=== PATIENT | female | born 1935 | race Two or more races ===

== ENCOUNTER → 2017-05-25 | Outpatient (CLI) | payer MEDICARE, MEDICAID ==
[~2017-05-25] MED LIST: ADENOSINE 74 MG in GIVE UN-DILUTED 0 ML IV ONE; ADENOSINE 90 MG/30 ML INJ IV ONE; ASPI81CH43; CARV6.2551; CITA-77; DULO30CA; FURO40TA; GLY5T PO; LISI40TA; METF-370; NIFE90TA30; OME20GT; POTA20TA53 PO
[2017-05-25 16:14] LABS: Basophils # (auto) 0 uL; Basophils % (auto) 0.3 % (0.0-2.0); CONDITION Y; Eosinophils # (auto) 0.4 uL; Eosinophils % (auto) 4.5 % (0.0-7.0); Hematocrit 33.8 % (36.0-46.0); Hemoglobin 11.3 g/dL (12.2-16.2); Lymphocytes % (auto) 12.1 % (10.0-50.0); Mean Corpuscular Hemoglobin 31.1 pg (28.0-32.0); Mean Corpuscular Hgb Conc. 33.5 g/dL (32.0-36.0); Mean Corpuscular Volume 92.9 fL (80.0-100.0); Mean Platelet Volume 9.7 fL (7.4-10.4); Monocytes # (auto) 0.4 uL; Monocytes % (auto) 4.6 % (0.0-12.0); Neutrophils # (auto) 6.8 uL; Neutrophils % (auto) 78.5 % (37.0-80.0); Platelet Count (auto) 254 10^3/uL (140-450); Red Cell Distribution Width 13.5 % (11.6-16.0); White Blood Cell 8.6 10^3/uL (4.4-10.8)
[2017-05-25 16:34] LABS: Albumin 3.5 g/dL (3.4-5.0); BUN/Creatinine Ratio 19.6; Bilirubin, Total 0.4 mg/dL (0.2-1.0); Calcium 8.9 mg/dL (8.5-10.1); Potassium 4.2 mmol/L (3.5-5.1)
== END | disposition home or self-care (01) ==
LOC: Rad HDHVI 10:34
PROVIDERS: ATTEND Internal Medicine Cardiovascular Disease
DX: I10 Essential (primary) hypertension (principal); E11.9 Type 2 diabetes mellitus without complications; E78.00 Pure hypercholesterolemia, unspecified; E03.9 Hypothyroidism, unspecified; K74.1 Hepatic sclerosis; D64.9 Anemia, unspecified; E55.9 Vitamin D deficiency, unspecified
CPT/HCPCS: 36415; 78452; 80053; 80061; 82306; 82607; 83036; 84439; 84443; 85025; 93005; 96374; 96375; A9500; J0153

== ENCOUNTER → 2017-06-20 | Outpatient (CLI) | payer MEDICARE, MEDICAID ==
[~2017-06-20] MED LIST changes: -ADENOSINE 74 MG in GIVE UN-DILUTED 0 ML IV ONE; -ADENOSINE 90 MG/30 ML INJ IV ONE
== END | disposition home or self-care (01) ==
LOC: Rad HDHVI 11:09
PROVIDERS: ATTEND Internal Medicine Cardiovascular Disease
DX: J44.9 Chronic obstructive pulmonary disease, unspecified (principal); E78.5 Hyperlipidemia, unspecified
CPT/HCPCS: 93306

== ENCOUNTER 2017-08-12 15:08 | Inpatient (IN) | payer MEDICARE, MEDICAID ==
[~2017-08-12] VITALS: Ht 154.9 cm; Wt 89.7 kg
[2017-08-12 15:39] LABS: Basophils # (auto) 0 uL; Basophils % (auto) 0.2 % (0.0-2.0); Eosinophils # (auto) 0.2 uL; Eosinophils % (auto) 1.2 % (0.0-7.0); Hematocrit 36.5 % (36.0-46.0); Hemoglobin 11.8 g/dL (12.2-16.2); Lymphocytes % (auto) 6.9 % (10.0-50.0); Mean Corpuscular Hemoglobin 30.2 pg (28.0-32.0); Mean Corpuscular Hgb Conc. 32.4 g/dL (32.0-36.0); Mean Corpuscular Volume 93.2 fL (80.0-100.0); Mean Platelet Volume 8.3 fL (6.9-10.8); Monocytes # (auto) 0.6 uL; Monocytes % (auto) 4.3 % (0.0-12.0); Neutrophils # (auto) 13.2 uL; Neutrophils % (auto) 87.4 % (37.0-80.0); Nucleated Red Blood Cells % 0.1 %; Platelet Count (auto) 266 10^3/uL (140-450); Red Cell Distribution Width 12.9 % (11.8-14.3); White Blood Cell 15.1 10^3/uL (4.4-10.8)
[2017-08-12 15:53] LABS: Albumin 3.5 g/dL (3.4-5.0); Anion Gap 9 (5-15); Aspartate Aminotransferase 10 U/L (15-37); Blood Urea Nitrogen 15 mg/dL (7-18); Calcium 8.5 mg/dL (8.5-10.1); Carbon Dioxide 27 mmol/L (21-32); Chloride 108 mmol/L (98-107); GFR African American 58 mL/min; GFR Non-African American 48 mL/min; Glucose 275 mg/dL (74-106); Magnesium 2.1 mg/dL (1.6-2.6); Potassium 3.8 mmol/L (3.5-5.1); Sodium 144 mmol/L (136-145)
[2017-08-12 15:58] LABS: Alkaline Phosphatase 89 U/L (45-117); Bilirubin, Total 0.2 mg/dL (0.2-1.0); Total Protein 7.2 g/dL (6.4-8.2)
[2017-08-12] MEDS ORDERED: SODIUM CHLORIDE 0.9% 1,000 ML IV ONE (16:18)
[2017-08-12] MEDS ORDERED: methylPREDNISolone SOD SUCC 125 MG/2 ML VL IV ONE (16:30)
[2017-08-12] MEDS ORDERED: IPRATROPIUM BROM 0.5 MG/2.5ML INH SOL NEB ONE (16:30)
[2017-08-12] MEDS ORDERED: ALBUTEROL SULF 2.5 MG/0.5ML(0.5%) NEB SOLN NEB ONE (16:30)
[2017-08-12 17:47] LABS: Urine Bilirubin Negative (Negative); Urine Blood Negative /uL (Negative); Urine Color Yellow (Yellow); Urine Glucose Normal (Normal); Urine Hyaline Cast FEW /lpf (0 - 2); Urine Ketone Negative (Negative); Urine Nitrite POSITIVE (Negative); Urine RBC 1 /hpf (0 - 4); Urine Squamous Epithelial Cell FEW /hpf (<5); Urine Urobilinogen Normal (Negative)
[2017-08-12] MEDS ORDERED: cefTRIAXone 1GM/50ML D5W 50 ML IV ONE ×2 (18:15→19:00)
[2017-08-12] MEDS ORDERED: MORPHINE SULF INJ 2 MG/ML SYRINGE 1ML IV PRN ×3 (18:45)
[2017-08-12] MEDS ORDERED: LORazepam 0.5 MG TAB PO PRN (18:45)
[2017-08-12] MEDS ORDERED: ALBUTEROL SULF 2.5 MG/0.5ML(0.5%) NEB SOLN NEB PRN (18:45)
[2017-08-12] MEDS ORDERED: NITROGLYCERIN 0.4 MG SL TAB SL PRN (18:45)
[2017-08-12] MEDS ORDERED: TEMAZEPAM 15 MG CAP PO PRN (18:45)
[2017-08-12] MEDS ORDERED: LACTULOSE 20Gm/30ML SOLN PO PRN (18:45)
[2017-08-12] MEDS ORDERED: DEXTROSE (50%) 50ML SYRG IV PRN (18:45)
[2017-08-12] MEDS ORDERED: ACETAMINOPHEN 500 MG TAB PO PRN (18:45)
[2017-08-12] MEDS ORDERED: PROMETHAZINE HCL 25 MG/ML 1ML IV PRN (18:45)
[2017-08-12] MEDS ORDERED: AZITHROMYCIN 500MG/D5W 250ML 250 ML IV ONE (19:00)
[2017-08-12] MEDS: ENOXAPARIN SOD 40 MG/0.4 ML SYRINGE SC SCH (19:35)
[2017-08-12] MEDS: glyBURIDE 5 MG TAB PO SCH (19:37)
[2017-08-12 20:15] VITALS: BP 154/81
[2017-08-12 21:38] VITALS: BP 139/66
[2017-08-12 22:00] VITALS: BP 154/81
[2017-08-12] MEDS: ACCU-CHEK COMFORT CURVE STRIP VI SCH (22:35)
[2017-08-12] MEDS: methylPREDNISolone SOD SUCC 40 MG/ML VL IV SCH (22:36)
[2017-08-12] MEDS: InsuLIN REG 1unit/0.01ml Soln (100units/ml) SC SCH (22:37)
[2017-08-12] MEDS ORDERED: InsuLIN REG 1unit/0.01ml Soln (100units/ml) IV ONE (23:00)
[2017-08-13] MEDS: IPRATROPIUM BROM 0.5 MG/2.5ML INH SOL NEB SCH ×4 (00:23→19:40)
[2017-08-13] MEDS: ALBUTEROL SULF 2.5 MG/0.5ML(0.5%) NEB SOLN NEB SCH ×4 (00:23→19:40)
[2017-08-13 05:00] VITALS: BP 153/81
[2017-08-13 05:56] LABS: Basophils # (auto) 0 uL; Basophils % (auto) 0.1 % (0.0-2.0); Eosinophils # (auto) 0 uL; Hematocrit 34.5 % (36.0-46.0); Hemoglobin 11.3 g/dL (12.2-16.2); Lymphocytes # (auto) 1.1 uL; Lymphocytes % (auto) 6.4 % (10.0-50.0); Mean Corpuscular Hemoglobin 30.1 pg (28.0-32.0); Mean Corpuscular Hgb Conc. 32.9 g/dL (32.0-36.0); Mean Corpuscular Volume 91.5 fL (80.0-100.0); Mean Platelet Volume 8.6 fL (6.9-10.8); Monocytes # (auto) 0.2 uL; Neutrophils # (auto) 15.5 uL; Neutrophils % (auto) 92.5 % (37.0-80.0); Platelet Count (auto) 249 10^3/uL (140-450); Red Cell Distribution Width 12.7 % (11.8-14.3); White Blood Cell 16.7 10^3/uL (4.4-10.8)
[2017-08-13] MEDS: ENOXAPARIN SOD 40 MG/0.4 ML SYRINGE SC SCH ×2 (06:16→18:35)
[2017-08-13] MEDS: CITALOPRAM HYDROBR 20 MG TAB PO SCH (06:17)
[2017-08-13] MEDS: FUROSEMIDE 40 MG TAB PO SCH (06:17)
[2017-08-13] MEDS: ACCU-CHEK COMFORT CURVE STRIP VI SCH ×4 (06:20→22:30)
[2017-08-13] MEDS: glyBURIDE 5 MG TAB PO SCH ×2 (06:20→18:35)
[2017-08-13] MEDS: InsuLIN REG 1unit/0.01ml Soln (100units/ml) SC SCH ×4 (06:23→22:41)
[2017-08-13 06:24] LABS: Albumin 3.2 g/dL (3.4-5.0); BUN/Creatinine Ratio 16.5; Bilirubin, Total 0.3 mg/dL (0.2-1.0); Calcium 8.2 mg/dL (8.5-10.1); Potassium 3.8 mmol/L (3.5-5.1); Total Protein 7.1 g/dL (6.4-8.2)
[2017-08-13 09:00] VITALS: BP 156/99
[2017-08-13] MEDS: methylPREDNISolone SOD SUCC 40 MG/ML VL IV SCH ×2 (11:20→22:30)
[2017-08-13] MEDS: cefTRIAXone 1GM/50ML D5W 50 ML IV SCH (11:20)
[2017-08-13] MEDS: AZITHROMYCIN 500MG/D5W 250ML 250 ML IV SCH (11:21)
[2017-08-13] MEDS: NIFEdipine ER 30 MG TAB PO SCH (11:22)
[2017-08-13] MEDS: CARVEDILOL 3.125 MG TAB PO SCH (11:23)
[2017-08-13] MEDS: LISINOPRIL 20 MG TAB PO SCH (11:23)
[2017-08-13] MEDS: DULoxetine HCL 30 MG CAP PO SCH (11:23)
[2017-08-13] MEDS: ASPirin 81 mg TAB PO SCH (11:23)
[2017-08-13] MEDS: POTASSIUM CHL 20 Meq TABLET PO SCH (11:24)
[2017-08-13 13:00] VITALS: BP 161/86
[2017-08-13 17:00] VITALS: BP 150/89
[2017-08-13 20:00] VITALS: BP 156/71
[2017-08-13 22:00] VITALS: BP 156/71
[2017-08-14] MEDS: IPRATROPIUM BROM 0.5 MG/2.5ML INH SOL NEB SCH ×3 (01:04→20:02)
[2017-08-14] MEDS: ALBUTEROL SULF 2.5 MG/0.5ML(0.5%) NEB SOLN NEB SCH ×3 (01:04→20:02)
[2017-08-14 05:02] VITALS: BP 149/74
[2017-08-14] MEDS: ENOXAPARIN SOD 40 MG/0.4 ML SYRINGE SC SCH ×2 (06:31→18:26)
[2017-08-14] MEDS: glyBURIDE 5 MG TAB PO SCH ×2 (06:32→18:27)
[2017-08-14] MEDS: FUROSEMIDE 40 MG TAB PO SCH (06:32)
[2017-08-14] MEDS: CITALOPRAM HYDROBR 20 MG TAB PO SCH (06:32)
[2017-08-14] MEDS: ACCU-CHEK COMFORT CURVE STRIP VI SCH ×4 (06:33→21:58)
[2017-08-14] MEDS: InsuLIN REG 1unit/0.01ml Soln (100units/ml) SC SCH ×4 (06:53→22:05)
[2017-08-14] MEDS: cefTRIAXone 1GM/50ML D5W 50 ML IV SCH (08:52)
[2017-08-14 09:55] VITALS: BP 149/78
[2017-08-14] MEDS: methylPREDNISolone SOD SUCC 40 MG/ML VL IV SCH ×2 (10:38→21:58)
[2017-08-14] MEDS: POTASSIUM CHL 20 Meq TABLET PO SCH (10:39)
[2017-08-14] MEDS: ASPirin 81 mg TAB PO SCH (10:39)
[2017-08-14] MEDS: AZITHROMYCIN 500MG/D5W 250ML 250 ML IV SCH (10:39)
[2017-08-14] MEDS: CARVEDILOL 3.125 MG TAB PO SCH (10:40)
[2017-08-14] MEDS: LISINOPRIL 20 MG TAB PO SCH (10:40)
[2017-08-14] MEDS: NIFEdipine ER 30 MG TAB PO SCH (10:41)
[2017-08-14] MEDS: DULoxetine HCL 30 MG CAP PO SCH (10:41)
[2017-08-14 14:44] VITALS: BP 147/70
[2017-08-14 16:31] VITALS: BP 143/76
[2017-08-14 21:55] VITALS: BP 145/62
[2017-08-15] MEDS: IPRATROPIUM BROM 0.5 MG/2.5ML INH SOL NEB SCH ×4 (00:30→19:02)
[2017-08-15] MEDS: ALBUTEROL SULF 2.5 MG/0.5ML(0.5%) NEB SOLN NEB SCH ×4 (00:30→19:02)
[2017-08-15 04:52] VITALS: BP 106/64
[2017-08-15] MEDS: ENOXAPARIN SOD 40 MG/0.4 ML SYRINGE SC SCH ×2 (06:29→18:41)
[2017-08-15] MEDS: glyBURIDE 5 MG TAB PO SCH ×2 (06:29→18:41)
[2017-08-15] MEDS: CITALOPRAM HYDROBR 20 MG TAB PO SCH (06:30)
[2017-08-15] MEDS: InsuLIN REG 1unit/0.01ml Soln (100units/ml) SC SCH ×4 (06:30→22:32)
[2017-08-15] MEDS: ACCU-CHEK COMFORT CURVE STRIP VI SCH ×4 (06:30→22:00)
[2017-08-15] MEDS: FUROSEMIDE 40 MG TAB PO SCH (06:46)
[2017-08-15] MEDS: cefTRIAXone 1GM/50ML D5W 50 ML IV SCH (08:37)
[2017-08-15 09:00] VITALS: BP 159/84
[2017-08-15] MEDS: AZITHROMYCIN 500MG/D5W 250ML 250 ML IV SCH (09:35)
[2017-08-15] MEDS: methylPREDNISolone SOD SUCC 40 MG/ML VL IV SCH ×2 (09:35→22:32)
[2017-08-15] MEDS: DULoxetine HCL 30 MG CAP PO SCH (09:35)
[2017-08-15] MEDS: POTASSIUM CHL 20 Meq TABLET PO SCH (09:36)
[2017-08-15] MEDS: ASPirin 81 mg TAB PO SCH (09:36)
[2017-08-15] MEDS: CARVEDILOL 3.125 MG TAB PO SCH (09:36)
[2017-08-15] MEDS: LISINOPRIL 20 MG TAB PO SCH (09:37)
[2017-08-15] MEDS: NIFEdipine ER 30 MG TAB PO SCH (09:37)
[2017-08-15 13:00] VITALS: BP 154/85
[2017-08-15 17:00] VITALS: BP 141/74
[2017-08-15 22:00] VITALS: BP 152/90
[2017-08-16] MEDS: ALBUTEROL SULF 2.5 MG/0.5ML(0.5%) NEB SOLN NEB SCH ×4 (00:25→19:13)
[2017-08-16] MEDS: IPRATROPIUM BROM 0.5 MG/2.5ML INH SOL NEB SCH ×4 (00:25→19:13)
[2017-08-16 05:00] VITALS: BP 157/85
[2017-08-16 05:32] LABS: Basophils # (auto) 0 uL; Eosinophils # (auto) 0 uL; Hematocrit 37.1 % (36.0-46.0); Hemoglobin 12.5 g/dL (12.2-16.2); Mean Corpuscular Hemoglobin 30.5 pg (28.0-32.0); Mean Corpuscular Hgb Conc. 33.5 g/dL (32.0-36.0); Mean Corpuscular Volume 90.8 fL (80.0-100.0); Mean Platelet Volume 8.7 fL (6.9-10.8); Monocytes # (auto) 0.3 uL; Monocytes % (auto) 3.3 % (0.0-12.0); Neutrophils # (auto) 9.1 uL; Neutrophils % (auto) 86.7 % (37.0-80.0); Nucleated Red Blood Cells % 0.1 %; Platelet Count (auto) 305 10^3/uL (140-450); Red Cell Distribution Width 12.8 % (11.8-14.3); White Blood Cell 10.5 10^3/uL (4.4-10.8)
[2017-08-16 05:48] LABS: BUN/Creatinine Ratio 25.8; Calcium 8.8 mg/dL (8.5-10.1); Potassium 4.1 mmol/L (3.5-5.1)
[2017-08-16] MEDS: glyBURIDE 5 MG TAB PO SCH ×2 (06:13→17:29)
[2017-08-16] MEDS: ENOXAPARIN SOD 40 MG/0.4 ML SYRINGE SC SCH ×2 (06:14→17:29)
[2017-08-16] MEDS: CITALOPRAM HYDROBR 20 MG TAB PO SCH (06:14)
[2017-08-16] MEDS: FUROSEMIDE 40 MG TAB PO SCH (06:14)
[2017-08-16] MEDS: InsuLIN REG 1unit/0.01ml Soln (100units/ml) SC SCH ×4 (06:15→21:59)
[2017-08-16] MEDS: ACCU-CHEK COMFORT CURVE STRIP VI SCH ×4 (06:15→21:59)
[2017-08-16] MEDS: cefTRIAXone 1GM/50ML D5W 50 ML IV SCH (08:38)
[2017-08-16 09:00] VITALS: BP 154/78
[2017-08-16] MEDS: methylPREDNISolone SOD SUCC 40 MG/ML VL IV SCH (10:22)
[2017-08-16] MEDS: DULoxetine HCL 30 MG CAP PO SCH (10:23)
[2017-08-16] MEDS: AZITHROMYCIN 500MG/D5W 250ML 250 ML IV SCH (10:23)
[2017-08-16] MEDS: POTASSIUM CHL 20 Meq TABLET PO SCH (10:23)
[2017-08-16] MEDS: ASPirin 81 mg TAB PO SCH (10:25)
[2017-08-16] MEDS: CARVEDILOL 3.125 MG TAB PO SCH (10:25)
[2017-08-16] MEDS: NIFEdipine ER 30 MG TAB PO SCH (10:25)
[2017-08-16] MEDS: LISINOPRIL 20 MG TAB PO SCH (10:26)
[2017-08-16 13:00] VITALS: BP 106/50
[2017-08-16] MEDS ORDERED: POTASSIUM CHL 10% (20 MEQ/15ML) 15ml ORAL SOLN GT ONE (14:30)
[2017-08-16] MEDS ORDERED: FUROSEMIDE 40 MG/4 ML VIAL IV ONE (14:30)
[2017-08-16 14:54] LABS: Basophils # (auto) 0 uL; Basophils % (auto) 0.3 % (0.0-2.0); Eosinophils # (auto) 0 uL; Eosinophils % (auto) 0.1 % (0.0-7.0); Hematocrit 38.7 % (36.0-46.0); Hemoglobin 12.7 g/dL (12.2-16.2); Lymphocytes # (auto) 0.8 uL; Lymphocytes % (auto) 8.5 % (10.0-50.0); Mean Corpuscular Hgb Conc. 32.8 g/dL (32.0-36.0); Mean Corpuscular Volume 91.6 fL (80.0-100.0); Mean Platelet Volume 8.4 fL (6.9-10.8); Monocytes # (auto) 0.4 uL; Monocytes % (auto) 3.8 % (0.0-12.0); Neutrophils # (auto) 8.2 uL; Neutrophils % (auto) 87.3 % (37.0-80.0); Nucleated Red Blood Cells % 0.1 %; Platelet Count (auto) 311 10^3/uL (140-450); Red Cell Distribution Width 12.7 % (11.8-14.3); White Blood Cell 9.4 10^3/uL (4.4-10.8)
[2017-08-16 15:08] LABS: BUN/Creatinine Ratio 23.7; Calcium 8.7 mg/dL (8.5-10.1); Potassium 4.4 mmol/L (3.5-5.1)
[2017-08-16 15:11] LABS: Bilirubin, Total 0.1 mg/dL (0.2-1.0)
[2017-08-16 15:17] LABS: B-Type Natriuretic Peptide 42.02 pg/mL (0-100)
[2017-08-16 15:50] LABS: Temperature: 23.1 C (20.0-25.0)
[2017-08-16 17:24] VITALS: BP 147/75
[2017-08-16 22:00] VITALS: BP 116/54
[2017-08-17] MEDS: IPRATROPIUM BROM 0.5 MG/2.5ML INH SOL NEB SCH ×3 (00:35→12:25)
[2017-08-17] MEDS: ALBUTEROL SULF 2.5 MG/0.5ML(0.5%) NEB SOLN NEB SCH ×3 (00:35→12:25)
[2017-08-17] MEDS: glyBURIDE 5 MG TAB PO SCH (06:20)
[2017-08-17] MEDS: CITALOPRAM HYDROBR 20 MG TAB PO SCH (06:20)
[2017-08-17] MEDS: ENOXAPARIN SOD 40 MG/0.4 ML SYRINGE SC SCH (06:20)
[2017-08-17] MEDS: ACCU-CHEK COMFORT CURVE STRIP VI SCH ×3 (06:21→17:00)
[2017-08-17] MEDS: FUROSEMIDE 40 MG TAB PO SCH (06:21)
[2017-08-17] MEDS: InsuLIN REG 1unit/0.01ml Soln (100units/ml) SC SCH ×3 (06:21→17:00)
[2017-08-17] MEDS: cefTRIAXone 1GM/50ML D5W 50 ML IV SCH (08:11)
[2017-08-17] MEDS: DULoxetine HCL 30 MG CAP PO SCH (09:12)
[2017-08-17] MEDS: NIFEdipine ER 30 MG TAB PO SCH (09:13)
[2017-08-17] MEDS: CARVEDILOL 3.125 MG TAB PO SCH (09:13)
[2017-08-17] MEDS: POTASSIUM CHL 20 Meq TABLET PO SCH (09:14)
[2017-08-17] MEDS: LISINOPRIL 20 MG TAB PO SCH (09:14)
[2017-08-17] MEDS: ASPirin 81 mg TAB PO SCH (09:14)
[2017-08-17] MEDS: AZITHROMYCIN 500MG/D5W 250ML 250 ML IV SCH (09:15)
[2017-08-17 09:54] VITALS: BP 148/79
[2017-08-17 14:48] VITALS: BP 141/73
[2017-08-17 16:06] VITALS: BP 141/96
[2017-08-17 17:26] VITALS: BP 136/108
== END 2017-08-17 17:55 | disposition home or self-care (01) | DRG 871 ==
LOC: EDBD 15:08 → ER 15:08 → TELE 15:09 → TELE-EAST 20:15
PROVIDERS: ADMIT Internal Medicine; ATTEND Internal Medicine Cardiovascular Disease
DX: A41.9 Sepsis, unspecified organism (principal); J18.9 Pneumonia, unspecified organism; J96.90 Respiratory failure, unspecified, unspecified whether with hypoxia or hypercapnia; I11.0 Hypertensive heart disease with heart failure; E11.21 Type 2 diabetes mellitus with diabetic nephropathy; E11.65 Type 2 diabetes mellitus with hyperglycemia; I50.9 Heart failure, unspecified; J44.0 Chronic obstructive pulmonary disease with (acute) lower respiratory infection; J44.1 Chronic obstructive pulmonary disease with (acute) exacerbation; N39.0 Urinary tract infection, site not specified; Z68.41 Body mass index [BMI] 40.0-44.9, adult; E78.5 Hyperlipidemia, unspecified; F32.9 Major depressive disorder, single episode, unspecified; E03.9 Hypothyroidism, unspecified; K21.9 Gastro-esophageal reflux disease without esophagitis; E66.01 Morbid (severe) obesity due to excess calories; Z82.49 Family history of ischemic heart disease and other diseases of the circulatory system; Z90.710 Acquired absence of both cervix and uterus; I25.2 Old myocardial infarction; Z83.3 Family history of diabetes mellitus; Z88.5 Allergy status to narcotic agent
CPT/HCPCS: 36415; 71010; 80048; 80053; 81001; 82962; 83036; 83735; 83880; 84443; 84484; 85025; 87040; 87070; 87081; 87086; 87205; 94640; 94761; 96361; 96365; 96367; 96375; J0696; J1815

== ENCOUNTER → 2018-03-26 | Outpatient (CLI) | payer MEDICARE, MEDICAID | END | disposition home or self-care (01) | LOC: Rad HDHVI 10:19 | PROVIDERS: ATTEND Internal Medicine Cardiovascular Disease | DX: I73.9 Peripheral vascular disease, unspecified (principal); E11.9 Type 2 diabetes mellitus without complications; E78.00 Pure hypercholesterolemia, unspecified; K21.9 Gastro-esophageal reflux disease without esophagitis; E78.5 Hyperlipidemia, unspecified; I11.0 Hypertensive heart disease with heart failure; I50.9 Heart failure, unspecified | CPT/HCPCS: 93926 ==

== ENCOUNTER → 2018-12-10 | Outpatient (CLI) | payer MEDICARE, MEDICAID | END | disposition home or self-care (01) | LOC: Rad HDHVI 11:09 | PROVIDERS: ATTEND Internal Medicine Cardiovascular Disease | DX: I07.1 Rheumatic tricuspid insufficiency (principal); I11.0 Hypertensive heart disease with heart failure; I50.33 Acute on chronic diastolic (congestive) heart failure; J44.9 Chronic obstructive pulmonary disease, unspecified | CPT/HCPCS: 93306 ==

== ENCOUNTER 2019-01-08 17:13 | Emergency (ER) | payer MEDICARE, MEDICAID ==
[~2019-01-08] VITALS: Ht 160 cm; Wt 68.0 kg
[2019-01-08 19:42] LABS: Basophils # (auto) 0 uL; Basophils % (auto) 0.1 % (0.0-2.0); Eosinophils # (auto) 0 uL; Eosinophils % (auto) 0.1 % (0.0-7.0); Hematocrit 32.2 % (36.0-46.0); Hemoglobin 10.6 g/dL (12.2-16.2); Lymphocytes # (auto) 0.4 uL; Lymphocytes % (auto) 3.8 % (10.0-50.0); Mean Corpuscular Hemoglobin 31.1 pg (28.0-32.0); Mean Corpuscular Volume 94.3 fL (80.0-100.0); Monocytes # (auto) 0.1 uL; Monocytes % (auto) 1.1 % (0.0-12.0); Neutrophils # (auto) 9.7 uL; Neutrophils % (auto) 94.9 % (37.0-80.0); Platelet Count (auto) 215 10^3/uL (140-450); Red Blood Cells 3.41 10^6/uL (4.0-5.20); Red Cell Distribution Width 13.3 % (11.8-14.3); White Blood Cell 10.3 10^3/uL (4.4-10.8)
[2019-01-08 19:57] LABS: Potassium 4.3 mmol/L (3.5-5.1)
[2019-01-08 20:02] LABS: Albumin 3.2 g/dL (3.4-5.0); BUN/Creatinine Ratio 14.3; Bilirubin, Total 0.3 mg/dL (0.2-1.0); Calcium 8.8 mg/dL (8.5-10.1); Total Protein 6.4 g/dL (6.4-8.2)
[2019-01-08] MEDS ORDERED: SODIUM CHLORIDE 0.9% 500 ML IV ONE (22:45)
[2019-01-09 00:07] LABS: Amylase 126 U/L (25-115); Lipase 128 U/L (73-393)
[2019-01-09] MEDS ORDERED: HYDROcodone-ACET 5/325MG TAB PO ONE (02:30)
[2019-01-09 03:00] VITALS: BP 172/91
== END 2019-01-09 03:58 | disposition home or self-care (01) ==
LOC: EDBD 17:13 → ER 17:13
DX: E11.65 Type 2 diabetes mellitus with hyperglycemia (principal); K85.90 Acute pancreatitis without necrosis or infection, unspecified; J44.9 Chronic obstructive pulmonary disease, unspecified; I11.0 Hypertensive heart disease with heart failure; I50.9 Heart failure, unspecified; K21.9 Gastro-esophageal reflux disease without esophagitis; E78.5 Hyperlipidemia, unspecified; I25.2 Old myocardial infarction; E07.9 Disorder of thyroid, unspecified; Z90.710 Acquired absence of both cervix and uterus; Z79.82 Long term (current) use of aspirin; Z79.84 Long term (current) use of oral hypoglycemic drugs; Z79.899 Other long term (current) drug therapy
CPT/HCPCS: 36415; 71045; 74018; 74176; 80053; 82010; 82150; 82962; 83690; 83880; 85025; 93005; 96360; 99284; J7040

== ENCOUNTER 2019-01-29 10:59 | Emergency (ER) | payer MEDICARE, MEDICAID ==
[~2019-01-29] VITALS: Ht 162.6 cm; Wt 27.2 kg
[2019-01-29 14:09] LABS: Basophils # (auto) 0 uL; Basophils % (auto) 0.4 % (0.0-2.0); Eosinophils # (auto) 0 uL; Eosinophils % (auto) 0.4 % (0.0-7.0); Hematocrit 28.8 % (36.0-46.0); Hemoglobin 9.6 g/dL (12.2-16.2); Lymphocytes # (auto) 1.2 uL; Lymphocytes % (auto) 11.9 % (10.0-50.0); Mean Corpuscular Hemoglobin 31.1 pg (28.0-32.0); Mean Corpuscular Hgb Conc. 33.5 g/dL (32.0-36.0); Mean Corpuscular Volume 92.9 fL (80.0-100.0); Monocytes # (auto) 0.6 uL; Monocytes % (auto) 6.2 % (0.0-12.0); Neutrophils % (auto) 81.1 % (37.0-80.0); Nucleated Red Blood Cells % 0.1 %; Platelet Count (auto) 179 10^3/uL (140-450); Red Cell Distribution Width 13.2 % (11.8-14.3); White Blood Cell 9.8 10^3/uL (4.4-10.8)
[2019-01-29 14:24] LABS: Magnesium 2.2 mg/dL (1.6-2.6)
[2019-01-29 14:28] LABS: Albumin 2.9 g/dL (3.4-5.0); Anion Gap 4 (5-15); BUN/Creatinine Ratio 16.5; Blood Urea Nitrogen 28 mg/dL (7-18); Calcium 8.6 mg/dL (8.5-10.1); Carbon Dioxide 31 mmol/L (21-32); Chloride 108 mmol/L (98-107); GFR African American 37 mL/min; GFR Non-African American 30 mL/min; Glucose 151 mg/dL (74-106); Potassium 4.1 mmol/L (3.5-5.1); Sodium 143 mmol/L (136-145)
[2019-01-29 14:35] LABS: Alanine Aminotransferase 26 U/L (13-56); Alkaline Phosphatase 95 U/L (45-117); Aspartate Aminotransferase 15 U/L (15-37); Bilirubin, Total 0.2 mg/dL (0.2-1.0); INR 1.08 (0.9-1.15); Partial Thromboplastin Time 21.2 sec (23.78-33.04); Prothrombin Time 11.5 sec (9.27-12.13); Total Protein 6.2 g/dL (6.4-8.2)
[2019-01-29] MEDS ORDERED: HYDROcodone-ACET 5/325MG TAB PO ONE (15:15)
[2019-01-29 16:11] VITALS: BP 147/69
== END 2019-01-29 16:47 | disposition home or self-care (01) ==
LOC: ER 10:59 → EDBD 10:59 → ER 16:47
DX: N39.0 Urinary tract infection, site not specified (principal); K57.90 Diverticulosis of intestine, part unspecified, without perforation or abscess without bleeding; K59.00 Constipation, unspecified; K21.9 Gastro-esophageal reflux disease without esophagitis; E78.5 Hyperlipidemia, unspecified; I10 Essential (primary) hypertension; I25.2 Old myocardial infarction; E11.9 Type 2 diabetes mellitus without complications
CPT/HCPCS: 36415; 71045; 74176; 80053; 82150; 83690; 83735; 84484; 85025; 85610; 85730; 93005; 94761

== ENCOUNTER 2019-03-03 14:49 | Inpatient (IN) | payer MEDICARE, MEDICAID | END 2019-03-14 18:55 | disposition home or self-care (01) | LOC: TELE 03-04 00:20 → CENTRAL 03-12 22:30 → TELE-CENTR 03-06 20:07 → ER 14:49 | PROC: 0W9F0ZZ Drainage of Abdominal Wall, Open Approach (ICD-10-PCS; principal; 2019-03-05 12:09) | PROC: 0WBF0ZZ Excision of Abdominal Wall, Open Approach (ICD-10-PCS; 2019-03-05 12:09) | DX: A41.9 Sepsis, unspecified organism (principal); L02.211 Cutaneous abscess of abdominal wall; E44.0 Moderate protein-calorie malnutrition; N12 Tubulo-interstitial nephritis, not specified as acute or chronic; I50.22 Chronic systolic (congestive) heart failure; L03.311 Cellulitis of abdominal wall; D64.9 Anemia, unspecified; I11.0 Hypertensive heart disease with heart failure; E11.65 Type 2 diabetes mellitus with hyperglycemia; E66.9 Obesity, unspecified; E11.40 Type 2 diabetes mellitus with diabetic neuropathy, unspecified; Z68.33 Body mass index [BMI] 33.0-33.9, adult; I25.10 Atherosclerotic heart disease of native coronary artery without angina pectoris ==

== ENCOUNTER 2019-04-08 13:00 | Emergency (ER) | payer MEDICARE, MEDICAID ==
[~2019-04-08] VITALS: Ht 157.5 cm; Wt 72.6 kg
[2019-04-08] MEDS ORDERED: SODIUM CHLORIDE 0.9% 1,000 ML IV ONE (13:33)
[2019-04-08 13:37] VITALS: BP 156/93
[2019-04-08 13:45] LABS: Basophils # (auto) 0.1 uL; Eosinophils # (auto) 0.1 uL; Eosinophils % (auto) 0.8 % (0.0-7.0); Hematocrit 32.5 % (36.0-46.0); Hemoglobin 10.4 g/dL (12.2-16.2); Lymphocytes # (auto) 1.5 uL; Lymphocytes % (auto) 17.1 % (10.0-50.0); Mean Corpuscular Hemoglobin 29.1 pg (28.0-32.0); Mean Corpuscular Hgb Conc. 32.1 g/dL (32.0-36.0); Mean Corpuscular Volume 90.5 fL (80.0-100.0); Monocytes # (auto) 0.5 uL; Monocytes % (auto) 6.1 % (0.0-12.0); Neutrophils # (auto) 6.6 uL; Platelet Count (auto) 288 10^3/uL (140-450); Red Blood Cells 3.59 10^6/uL (4.0-5.20); Red Cell Distribution Width 14.4 % (11.8-14.3); White Blood Cell 8.8 10^3/uL (4.4-10.8)
[2019-04-08 14:03] LABS: Alanine Aminotransferase 12 U/L (13-56); Albumin 3.1 g/dL (3.4-5.0); Anion Gap 10 (5-15); Aspartate Aminotransferase 11 U/L (15-37); BUN/Creatinine Ratio 11.3; Blood Urea Nitrogen 21 mg/dL (7-18); Calcium 8.9 mg/dL (8.5-10.1); Carbon Dioxide 25 mmol/L (21-32); Chloride 106 mmol/L (98-107); GFR African American 33 mL/min; GFR Non-African American 27 mL/min; Glucose 102 mg/dL (74-106); Lipase 131 U/L (73-393); Sodium 141 mmol/L (136-145)
[2019-04-08 14:08] LABS: Alkaline Phosphatase 91 U/L (45-117); Bilirubin, Total 0.3 mg/dL (0.2-1.0); Total Protein 7.2 g/dL (6.4-8.2)
[2019-04-08 14:26] LABS: Potassium 2.7 mmol/L (3.5-5.1)
[2019-04-08] MEDS ORDERED: POTASSIUM CHL 20MEQ/100ML 100 ML IV ONE (14:34)
[2019-04-08] MEDS: POTASSIUM CHL 20MEQ/100ML 100 ML IV SCH ×2 (14:41→16:30)
[2019-04-08] MEDS ORDERED: HYDROcodone-ACET 5/325MG TAB PO ONE (15:30)
[2019-04-08] MEDS ORDERED: POTASSIUM EFFERVESENT TAB 25 MEQ PO ONE (15:30)
== END 2019-04-08 16:35 | disposition home or self-care (01) ==
LOC: EDBD 13:00 → ER 13:03
DX: E87.6 Hypokalemia (principal); R11.2 Nausea with vomiting, unspecified; J44.9 Chronic obstructive pulmonary disease, unspecified; I11.0 Hypertensive heart disease with heart failure; I50.9 Heart failure, unspecified; E11.9 Type 2 diabetes mellitus without complications; K21.9 Gastro-esophageal reflux disease without esophagitis; E78.5 Hyperlipidemia, unspecified; I25.2 Old myocardial infarction; Z90.710 Acquired absence of both cervix and uterus; Z79.899 Other long term (current) drug therapy
CPT/HCPCS: 36415; 74176; 80053; 83690; 83735; 84484; 85025; 93005; 94761; 96360; 99284; J3480; J7030

== ENCOUNTER 2019-05-16 13:35 | Inpatient (IN) | payer MEDICARE, MEDICAID ==
[~2019-05-16] VITALS: Ht 154.9 cm; Wt 68.3 kg
--- NOTE | 2019-05-16 15:00 | NUR ---
Patient arrived on the unit Patient is a direct admission. Patient has daughter at bedside, she is A & O x4, no s/s of distress at this time, vital signs stable, patient and family have been oriented to the room. Bed is in low, locked position, will continue to monitor Q1h and PRN. Will input written orders at this time.
[2019-05-16 16:07] VITALS: BP 130/74
--- NOTE | 2019-05-16 16:10 | NUR ---
Patient taken for procedures/test.
[2019-05-16] MEDS ORDERED: DEXTROSE (50%) 50ML SYRG IV PRN (16:15)
[2019-05-16 16:32] VITALS: BP 130/74
[2019-05-16] MEDS: InsuLIN REG 1unit/0.01ml Soln (100units/ml) SC SCH ×2 (17:00→22:10)
[2019-05-16] MEDS ORDERED: ACCU-CHEK COMFORT CURVE STRIP VI SCH (17:00)
[2019-05-16] MEDS ORDERED: LEVOFLOXACIN 500MG 100 ML IV ONE (17:24)
--- NOTE | 2019-05-16 18:02 | NUR ---
Patient returned from procedures.
--- NOTE | 2019-05-16 18:05 | NUR ---
Blood Sugar Patient Blood sugar 37, initiated protocol, gave patient 15 G of sugar, an apple juice, and will check blood glucose in 15 minutes. Patient is awake and alert and has no s/s of distress at this time. Will continue to monitor.
--- NOTE | 2019-05-16 18:20 | NUR ---
Recheck patient Blood glucose Patient blood glucose is 45, will give another 15 G of sugar, an apple juice. Patient has no s/s of distress at this time. Will continue to monitor.
--- NOTE | 2019-05-16 18:55 | NUR ---
Patient Blood sugar After 2 apple juices and some gram crackers, patient blood glucose is 64 and patient is going to eat dinner at this time.
--- NOTE | 2019-05-16 19:25 | NUR ---
Opening Shift Note Received report from Nicky CRUMP. Assumed care of patient, awake and alert, family at bedside. No S/S of distress/SOB or pain. Instructed on POC and to call for assist PRN. Bed in lowest position, side rails up x2, bed alarm on, call light and belonging in reach. Will continue to monitor for changes Q1hr and PRN.
[2019-05-16] MEDS: SODIUM CHLORIDE 0.9% 1,000 ML IV SCH (19:41)
[2019-05-16] MEDS: ACCU-CHEK COMFORT CURVE STRIP VI SCH ×2 (19:42→22:10)
[2019-05-16 20:00] VITALS: BP 113/57
[2019-05-16] MEDS: HYDROmorphone HCL 2 MG/ML VL IV PRN (20:24)
--- NOTE | 2019-05-16 20:50 | NUR ---
MRSA swab sent to laboratory.
[2019-05-16 22:00] VITALS: BP 113/57
[2019-05-16] MEDS: CARVEDILOL 3.125 MG TAB PO SCH (22:00)
[2019-05-16] MEDS: metroNIDAZOLE 500MG/100ML 100 ML IV SCH (22:09)
[2019-05-16] MEDS: ALPRAZolam 0.25 MG TAB PO PRN (22:20)
[2019-05-17] MEDS: HYDROmorphone HCL 2 MG/ML VL IV PRN ×4 (00:35→15:12)
[2019-05-17 04:30] VITALS: BP 92/73
[2019-05-17 05:22] VITALS: BP 126/66
[2019-05-17] MEDS: metroNIDAZOLE 500MG/100ML 100 ML IV SCH ×3 (05:35→22:10)
[2019-05-17] MEDS: ACCU-CHEK COMFORT CURVE STRIP VI SCH ×4 (06:50→22:10)
[2019-05-17] MEDS: InsuLIN REG 1unit/0.01ml Soln (100units/ml) SC SCH ×4 (06:50→22:00)
--- NOTE | 2019-05-17 07:24 | NUR ---
Opening Shift Note Assumed care of patient, awake and alert. No S/S of distress/SOB or pain. Instructed on POC and to call for assist PRN, will continue to monitor for changes Q1hr and PRN.
[2019-05-17 09:00] VITALS: BP 121/54
[2019-05-17] MEDS: DULoxetine HCL 30 MG CAP PO SCH (09:55)
[2019-05-17] MEDS: LEVOFLOXACIN 250MG 50 ML IV SCH (09:55)
[2019-05-17] MEDS: POTASSIUM CHL 10 Meq TABLET PO SCH (09:56)
[2019-05-17] MEDS: FUROSEMIDE 40 MG/4 ML VIAL IV SCH (10:00)
[2019-05-17] MEDS: CARVEDILOL 3.125 MG TAB PO SCH ×2 (10:01→22:10)
[2019-05-17] MEDS ORDERED: HYDROcodone-ACET 10/325MG TAB PO PRN (11:45)
[2019-05-17] MEDS: HYDROcodone-ACET 7.5/325MG TAB PO PRN ×2 (12:14→19:45)
[2019-05-17] MEDS: SODIUM CHLORIDE 0.9% 1,000 ML IV SCH (12:15)
[2019-05-17 13:00] VITALS: BP 137/84
[2019-05-17] MEDS ORDERED: ONDANSETRON HCL 4 MG/2 ML VIAL ONE (13:02)
[2019-05-17] MEDS: ONDANSETRON HCL 4 MG/2 ML VIAL IV PRN ×2 (13:06→19:08)
[2019-05-17 17:00] VITALS: BP 126/71
--- NOTE | 2019-05-17 19:30 | NUR ---
Change of shift given to night filler RN. No distress noted.
--- NOTE | 2019-05-17 19:30 | NUR ---
Opening Shift Note Assumed care of patient, awake and alert. No S/S of distress/SOB. Instructed on POC and to call for assist PRN, will continue to monitor for changes Q1hr and PRN. Side rails up x2. Bed locked in lowest position. Call light within reach. Daughter at bedside. Bed alarm on for safety.
[2019-05-17 21:30] VITALS: BP 129/60
--- NOTE | 2019-05-17 22:40 | NUR ---
LAB PATIENT POSITIVE FOR MRSA IN THE NARES
--- NOTE | 2019-05-18 01:23 | NUR ---
Rounds Patient in bed awake. Assisted patient to commode and back to bed. Patient tolerated well. Will continue to monitor. Bed alarm on for safety.
[2019-05-18 03:24] LABS: Urine Bacteria NONE SEEN /hpf (None Seen); Urine Blood Negative /uL (Negative); Urine Budding Yeast FEW /hpf (None Seen); Urine Mucus FEW (None Seen); Urine Specific Gravity 1.009 (1.001-1.035); Urine WBC 1 /hpf (0 - 5)
[2019-05-18 04:30] VITALS: BP 131/74
[2019-05-18] MEDS: ONDANSETRON HCL 4 MG/2 ML VIAL IV PRN ×3 (05:06→18:03)
[2019-05-18] MEDS: HYDROcodone-ACET 7.5/325MG TAB PO PRN ×3 (05:06→18:02)
[2019-05-18] MEDS: metroNIDAZOLE 500MG/100ML 100 ML IV SCH ×3 (06:52→22:27)
[2019-05-18] MEDS: InsuLIN REG 1unit/0.01ml Soln (100units/ml) SC SCH ×4 (06:54→22:00)
[2019-05-18] MEDS: ACCU-CHEK COMFORT CURVE STRIP VI SCH ×4 (06:54→22:28)
--- NOTE | 2019-05-18 07:17 | NUR ---
Endorsed care to day shift RN.
--- NOTE | 2019-05-18 07:18 | NUR ---
Opening Shift Note Assumed care of patient, patient is resting in bed with eyes closed. No S/S of distress/SOB or pain. Will continue to monitor for changes Q1hr and PRN. Respirations even and regular.
[2019-05-18 08:26] VITALS: BP 145/69
[2019-05-18] MEDS: SODIUM CHLORIDE 0.9% 1,000 ML IV SCH (08:33)
[2019-05-18] MEDS: HYDROmorphone HCL 2 MG/ML VL IV PRN ×2 (08:44→13:51)
[2019-05-18] MEDS: DULoxetine HCL 30 MG CAP PO SCH (10:24)
[2019-05-18] MEDS: POTASSIUM CHL 10 Meq TABLET PO SCH (10:24)
[2019-05-18] MEDS: LEVOFLOXACIN 250MG 50 ML IV SCH (10:24)
[2019-05-18] MEDS: CARVEDILOL 3.125 MG TAB PO SCH ×2 (10:25→22:27)
[2019-05-18] MEDS: FUROSEMIDE 40 MG/4 ML VIAL IV SCH (10:26)
[2019-05-18] MEDS ORDERED: MUPIROCIN 2% OINT 15gm or 22gm EACHNOSTRI SCH (11:15)
[2019-05-18 12:00] VITALS: BP 115/65
[2019-05-18] MEDS: MUPIROCIN 2% OINT 15gm or 22gm EACHNOSTRI SCH ×2 (14:02→22:27)
--- NOTE | 2019-05-18 15:22 | NUR ---
IV insertion IV access obtained, via clean sterile technique by inserting 22 gauge catheter at right forearm after 1 attempt(s). IV secured properly. No trauma to site. Patient tolerated well.
--- NOTE | 2019-05-18 15:24 | NUR ---
IV removal IV DC'd with clean sterile technique, catheter fully intact. Pressure dressing applied to site. Patient tolerated well.
[2019-05-18] MEDS: NYSTATIN TOPICAL POWDER 15GM TOP SCH ×2 (16:12→22:27)
[2019-05-18] MEDS: FLUCONAZOLE 100 MG TAB PO SCH (16:12)
[2019-05-18 16:38] VITALS: BP 128/56
--- NOTE | 2019-05-18 19:13 | NUR ---
Change of shift given to night monitor RN. No distress noted.
[2019-05-18 22:19] VITALS: BP 170/72
[2019-05-19] VITALS (7 sets, daily range): BP systolic 141–182; BP diastolic 64–82
--- NOTE | 2019-05-19 01:32 | NUR ---
Rounds Patient in bed asleep with no signs of distress/sob/pain. Will continue to monitor. Bed alarm on for safety.
[2019-05-19] MEDS: HYDROmorphone HCL 2 MG/ML VL IV PRN ×2 (04:40→11:52)
[2019-05-19] MEDS: ONDANSETRON HCL 4 MG/2 ML VIAL IV PRN ×3 (04:50→22:18)
[2019-05-19] MEDS: SODIUM CHLORIDE 0.9% 1,000 ML IV SCH (06:22)
[2019-05-19] MEDS: InsuLIN REG 1unit/0.01ml Soln (100units/ml) SC SCH ×4 (06:22→22:00)
[2019-05-19] MEDS: metroNIDAZOLE 500MG/100ML 100 ML IV SCH ×3 (06:22→22:17)
[2019-05-19] MEDS: ACCU-CHEK COMFORT CURVE STRIP VI SCH ×4 (06:22→22:18)
--- NOTE | 2019-05-19 06:41 | NUR ---
Contacted Dr. Mejias Regarding patient not having a bowel movement since admission. Will wait for call back.
--- NOTE | 2019-05-19 06:43 | NUR ---
Received order from Dr. Mejias of Mag citrate 300 cc once. Continue care.
[2019-05-19] MEDS ORDERED: MAGNESIUM CITRATE SOLUTION 300 ML BTL PO ONE (06:45)
--- NOTE | 2019-05-19 07:20 | NUR ---
Opening Shift Note Received report from Tanner CRUMP. Assumed care of patient, awake and alert. No S/S of distress/SOB or pain. Noted Ukrainian speaking only. Instructed on POC and to call for assist PRN, will continue to monitor for changes Q1hr and PRN.
--- NOTE | 2019-05-19 09:00 | NUR ---
NOTICED PATIENT WEARING DIAPER. DAUGHTER BRANDON AT BEDSIDE. EXPLAINED THE "NO-DIAPER POLICY" BUT DAUGHTER INSISTED THAT HER MOTHER NEEDS IT. PATIENT IS REFUSING NOT TO WEAR IT.
[2019-05-19] MEDS: LEVOFLOXACIN 250MG 50 ML IV SCH (09:19)
[2019-05-19] MEDS: FUROSEMIDE 40 MG/4 ML VIAL IV SCH (09:20)
[2019-05-19] MEDS: POTASSIUM CHL 10 Meq TABLET PO SCH (09:20)
[2019-05-19] MEDS: CARVEDILOL 3.125 MG TAB PO SCH ×2 (09:20→22:18)
[2019-05-19] MEDS: FLUCONAZOLE 100 MG TAB PO SCH (09:21)
[2019-05-19] MEDS: DULoxetine HCL 30 MG CAP PO SCH (09:22)
[2019-05-19] MEDS: HYDROcodone-ACET 7.5/325MG TAB PO PRN ×2 (09:22→22:19)
[2019-05-19] MEDS: NYSTATIN TOPICAL POWDER 15GM TOP SCH ×2 (09:23→22:18)
--- NOTE | 2019-05-19 09:30 | NUR ---
PATIENT WITH C/O NAUSEA AND NOT FEELING WELL. RN NOTIFIED.
[2019-05-19] MEDS: MUPIROCIN 2% OINT 15gm or 22gm EACHNOSTRI SCH ×2 (09:39→22:17)
--- NOTE | 2019-05-19 12:36 | NUR ---
FF UP AMBER FROM [place] REGARDING BONE SCAN TEST. SAID HE WILL DO IT WITHIN THIS DAY.
--- NOTE | 2019-05-19 16:18 | NUR ---
CALLED AMBER FROM [place], SAID THEY WILL DO THE BONE SCAN TOMORROW. PATIENT MADE AWARE AND VERBALIZED UNDERSTANDING.
--- NOTE | 2019-05-19 16:59 | NUR ---
PATIENT'S DAUGHTER REFUSED THE INSULIN SHOT, SAID THAT SHE GIVES INSULIN TO HER MOM WHEN THE BLOOD SUGAR IS 200+.
--- NOTE | 2019-05-19 17:30 | NUR ---
RECHECKED BLOOD PRESSURE: 149/70MMHG.
--- NOTE | 2019-05-19 19:05 | NUR ---
Opening Shift Note Assumed care of patient, awake and alert. No S/S of distress/SOB or pain. Instructed on POC and to call for assist PRN, will continue to monitor for changes Q1hr and PRN. Side rails up x2. Bed locked in lowest position. Call light within reach. Family at bedside.
[2019-05-19] MEDS: ALPRAZolam 0.25 MG TAB PO PRN (22:19)
--- NOTE | 2019-05-20 02:16 | NUR ---
Rounds Patient in bed asleep with no signs of distress/sob/pain. Will continue to monitor. Bed alarm on for safety.
[2019-05-20 05:00] VITALS: BP 159/88
[2019-05-20] MEDS: metroNIDAZOLE 500MG/100ML 100 ML IV SCH ×3 (06:57→21:37)
[2019-05-20] MEDS: SODIUM CHLORIDE 0.9% 1,000 ML IV SCH ×2 (06:57→20:15)
[2019-05-20] MEDS: ACCU-CHEK COMFORT CURVE STRIP VI SCH ×4 (06:58→22:00)
[2019-05-20] MEDS: InsuLIN REG 1unit/0.01ml Soln (100units/ml) SC SCH ×4 (07:00→22:00)
--- NOTE | 2019-05-20 07:18 | NUR ---
Endorsed care to day shift RN.
[2019-05-20 07:32] LABS: Basophils # (auto) 0.1 uL; Basophils % (auto) 0.8 % (0.0-2.0); Eosinophils # (auto) 0.3 uL; Eosinophils % (auto) 3.4 % (0.0-7.0); Hemoglobin 9.4 g/dL (12.2-16.2); Mean Corpuscular Hemoglobin 29.7 pg (28.0-32.0); Mean Corpuscular Hgb Conc. 33.4 g/dL (32.0-36.0); Mean Corpuscular Volume 88.9 fL (80.0-100.0); Monocytes # (auto) 0.6 uL; Monocytes % (auto) 7.5 % (0.0-12.0); Neutrophils # (auto) 6.5 uL; Neutrophils % (auto) 76.3 % (37.0-80.0); Platelet Count (auto) 214 10^3/uL (140-450); Red Blood Cells 3.15 10^6/uL (4.0-5.20); Red Cell Distribution Width 14.7 % (11.8-14.3); White Blood Cell 8.5 10^3/uL (4.4-10.8)
--- NOTE | 2019-05-20 07:35 | NUR ---
Opening Shift Note received report from Tanner CRUMP. Assumed care of patient, asleep. No S/S of distress/SOB or pain. Instructed on POC and to call for assist PRN, will continue to monitor for changes Q1hr and PRN.
[2019-05-20 08:20] VITALS: BP 158/97
[2019-05-20] MEDS: LEVOFLOXACIN 250MG 50 ML IV SCH (09:12)
[2019-05-20] MEDS: FUROSEMIDE 40 MG/4 ML VIAL IV SCH (09:13)
[2019-05-20] MEDS: ONDANSETRON HCL 4 MG/2 ML VIAL IV PRN ×2 (09:13→17:50)
[2019-05-20] MEDS: HYDROcodone-ACET 7.5/325MG TAB PO PRN (09:13)
[2019-05-20] MEDS: DULoxetine HCL 30 MG CAP PO SCH (09:14)
[2019-05-20] MEDS: FLUCONAZOLE 100 MG TAB PO SCH (09:14)
[2019-05-20] MEDS: CARVEDILOL 3.125 MG TAB PO SCH ×2 (09:14→21:35)
[2019-05-20] MEDS: POTASSIUM CHL 10 Meq TABLET PO SCH (09:15)
[2019-05-20] MEDS: NYSTATIN TOPICAL POWDER 15GM TOP SCH ×2 (09:16→21:40)
[2019-05-20] MEDS: MUPIROCIN 2% OINT 15gm or 22gm EACHNOSTRI SCH ×2 (09:16→21:42)
--- NOTE | 2019-05-20 12:35 | NUR ---
PATIENT TAKEN TO AR FOR BONE SCAN BY WHEELCHAIR, ASSISTED BY SCHOOL PRINCIPAL.
[2019-05-20 13:09] VITALS: BP 147/82
--- NOTE | 2019-05-20 13:36 | NUR ---
PATIENT IS BACK TO ROOM. BONE SCAN DONE.
--- NOTE | 2019-05-20 14:30 | NUR ---
PATIENT DECLINED P.T. X 2. DAUGHTER PRESENT.
--- NOTE | 2019-05-20 14:49 | NUR ---
NUTRITION ASSESSMENT NOTES Please refer to link notes of nutrition screen form filed under the intervention section of the plan of care for further details. Est. Needs: 1450 kcal to 1800 kcal (20-25 kcal/kgBW), 58 gms to 72 gms pro (0.8-1.0 gms/kgBW). Will continue to monitor pertinent labs and reassess nutrient need prn Thank you. Addendum: 05/20/19 at [address] Amended: Links added.
[2019-05-20 17:02] VITALS: BP 163/86
[2019-05-20 18:43] VITALS: BP 151/83
--- NOTE | 2019-05-20 18:43 | NUR ---
RECHECKED BLOOD PRESSURE: 151/83MMHG. PATIENT HAS NO COMPLAINTS OF PAIN, NO S/SX OF SOB OR ANY DISTRESS. WILL ENDORSE TO NIGHT NURSE.
--- NOTE | 2019-05-20 19:30 | NUR ---
Received report from [place] CRUMP
--- NOTE | 2019-05-20 19:50 | NUR ---
Opening Shift Note Assumed care of patient, awake and alert x3, some confusion on date, daughter at bedside states this is normal for patient. No S/S of distress/SOB or pain. Instructed on POC and to call for assistance PRN, will continue to monitor for changes Q1hr and PRN. Bed alarm placed
[2019-05-20] MEDS: ALPRAZolam 0.25 MG TAB PO PRN (21:34)
[2019-05-20 21:44] VITALS: BP 176/92
--- NOTE | 2019-05-21 00:30 | NUR ---
IV insertion IV access obtained, via clean sterile technique by inserting 22 gauge catheter at left hand and 22 right hand after 3 attempt(s). IV secured properly. No trauma to site. Patient tolerated well. NOTE:
--- NOTE | 2019-05-21 03:49 | NUR ---
Rounds Patient sleeping. No S/S of distress/SOB or pain, respirations even and unlabored on 2L NC. Will continue to monitor changes q1hr and PRN. Bed alarm on
[2019-05-21 05:18] VITALS: BP 149/77
[2019-05-21] MEDS: metroNIDAZOLE 500MG/100ML 100 ML IV SCH ×3 (05:56→22:13)
[2019-05-21] MEDS: ACCU-CHEK COMFORT CURVE STRIP VI SCH ×4 (05:56→22:14)
--- NOTE | 2019-05-21 06:08 | NUR ---
Blood sugar Blood sugar checked initially 69, rechecked 65, OJ given rechecked sugar 79, instructed to call if any shakiness. Pt assisted to bedside commode to void, assisted back to bed gait steady with assistance
[2019-05-21] MEDS: InsuLIN REG 1unit/0.01ml Soln (100units/ml) SC SCH ×4 (06:17→22:00)
--- NOTE | 2019-05-21 07:26 | NUR ---
Endorsed care to Pamela CRUMP
--- NOTE | 2019-05-21 07:50 | NUR ---
Recieved report from MARY CRUMP , assumed care, pt resting, no c/o pain or discomfort no respiratory distress noted, bed in low position call light within reach will continue to monitor
[2019-05-21 08:00] VITALS: BP 160/76
[2019-05-21] MEDS: FUROSEMIDE 40 MG/4 ML VIAL IV SCH (09:26)
[2019-05-21] MEDS: DULoxetine HCL 30 MG CAP PO SCH (09:27)
[2019-05-21] MEDS: LEVOFLOXACIN 250MG 50 ML IV SCH (09:27)
[2019-05-21] MEDS: FLUCONAZOLE 100 MG TAB PO SCH (09:28)
[2019-05-21] MEDS: CARVEDILOL 3.125 MG TAB PO SCH ×2 (09:28→22:14)
[2019-05-21] MEDS: POTASSIUM CHL 10 Meq TABLET PO SCH (09:29)
[2019-05-21] MEDS: NYSTATIN TOPICAL POWDER 15GM TOP SCH ×2 (09:32→22:14)
[2019-05-21] MEDS: MUPIROCIN 2% OINT 15gm or 22gm EACHNOSTRI SCH ×2 (09:33→22:14)
[2019-05-21] MEDS: ONDANSETRON HCL 4 MG/2 ML VIAL IV PRN (12:42)
[2019-05-21] MEDS: ALPRAZolam 0.25 MG TAB PO PRN (12:43)
[2019-05-21 13:33] VITALS: BP 127/69
[2019-05-21 14:19] LABS: Basophils # (auto) 0.1 uL; Basophils % (auto) 0.8 % (0.0-2.0); Eosinophils # (auto) 0.2 uL; Eosinophils % (auto) 2.6 % (0.0-7.0); Hemoglobin 9.9 g/dL (12.2-16.2); Lymphocytes # (auto) 0.9 uL; Lymphocytes % (auto) 11.3 % (10.0-50.0); Mean Corpuscular Hemoglobin 29.9 pg (28.0-32.0); Monocytes # (auto) 0.6 uL; Monocytes % (auto) 7.6 % (0.0-12.0); Neutrophils # (auto) 5.9 uL; Neutrophils % (auto) 77.7 % (37.0-80.0); Platelet Count (auto) 209 10^3/uL (140-450); Red Cell Distribution Width 14.7 % (11.8-14.3); White Blood Cell 7.6 10^3/uL (4.4-10.8)
[2019-05-21 14:45] LABS: Albumin 2.8 g/dL (3.4-5.0); Calcium 8.7 mg/dL (8.5-10.1)
[2019-05-21 14:48] LABS: BUN/Creatinine Ratio 5.7; Bilirubin, Total 0.4 mg/dL (0.2-1.0); Total Protein 5.8 g/dL (6.4-8.2)
[2019-05-21] MEDS: SODIUM CHLORIDE 0.9% 1,000 ML IV SCH (16:15)
[2019-05-21 17:00] VITALS: BP 152/70
--- NOTE | 2019-05-21 19:00 | NUR ---
REPORT GIVEN TO MARY CRUMP
--- NOTE | 2019-05-21 19:30 | NUR ---
Received report from Pamela CRUMP
--- NOTE | 2019-05-21 19:54 | NUR ---
Called/paged Dr. Mejias called re: notify of potassium 3.0 this afternoon. Waiting for call back. Continue care.
[2019-05-21 20:00] VITALS: BP 136/68
--- NOTE | 2019-05-21 20:18 | NUR ---
returned call Dr. Mejias returned call, updated on patient status and reason for call, orders received for Klor Con 40meq now, will medicate as ordered. No labs ordered at this time. Continue care.
[2019-05-21] MEDS ORDERED: POTASSIUM CHL 20 Meq TABLET PO ONE (20:45)
--- NOTE | 2019-05-21 21:53 | NUR ---
Family Spoke to daughter Laura, password verified, Gertrudis Salamanca. Updated on poc and patient status, all questions answered.
[2019-05-21 22:00] VITALS: BP 136/68
--- NOTE | 2019-05-22 02:20 | NUR ---
Rounds Patient sleeping, respirations even and unlabored. No S/S of distress/SOB or pain. Will continue to monitor changes q1hr and PRN.
[2019-05-22 04:30] VITALS: BP 151/81
[2019-05-22] MEDS: ALPRAZolam 0.25 MG TAB PO PRN ×2 (06:08→21:09)
[2019-05-22] MEDS: metroNIDAZOLE 500MG/100ML 100 ML IV SCH (06:08)
[2019-05-22] MEDS: ACCU-CHEK COMFORT CURVE STRIP VI SCH ×4 (06:22→21:27)
[2019-05-22] MEDS: InsuLIN REG 1unit/0.01ml Soln (100units/ml) SC SCH ×4 (06:22→21:27)
--- NOTE | 2019-05-22 07:30 | NUR ---
Endorsed care to Joann CRUMP
[2019-05-22 08:00] VITALS: BP 154/73
--- NOTE | 2019-05-22 08:00 | NUR ---
ASSESSMENT NOTE PATIENT IS ALERT TO SELF, SITUATION, CONFUSED ON TIMES, PT HAS LARGE SOFT ABDOMEN, 1+ EDEMA ON BOTH LOWER EXTREMITIES, PATIENT TEND TO BE ANXIOUS AND VERY WORRIED FOR BEING HOSPITALIZED, PATIENT IS FEEDING HER SELF BREAKFAST SLOWLY, RESTING IN HIGH HERRMANN POSITION, EATING OATMEAL, REFUSING TO EAT ANY THING ELSE, SUPPORT GIVEN TO PT, ASSISTED AT ALL TIMES, PATIENT IS INCONTINENT IN URINE, KEPT CLEAN AND DRY AT ALL TIMES, CALL LIGHT WITHIN REACH.
[2019-05-22 09:10] VITALS: BP 141/84
[2019-05-22] MEDS: LEVOFLOXACIN 250MG 50 ML IV SCH (09:13)
[2019-05-22] MEDS: FLUCONAZOLE 100 MG TAB PO SCH (09:13)
[2019-05-22] MEDS: MUPIROCIN 2% OINT 15gm or 22gm EACHNOSTRI SCH ×2 (09:14→21:27)
[2019-05-22] MEDS: DULoxetine HCL 30 MG CAP PO SCH (09:14)
[2019-05-22] MEDS: POTASSIUM CHL 10 Meq TABLET PO SCH (09:15)
[2019-05-22] MEDS: CARVEDILOL 3.125 MG TAB PO SCH ×2 (09:15→21:20)
[2019-05-22] MEDS: NYSTATIN TOPICAL POWDER 15GM TOP SCH ×2 (09:16→21:27)
[2019-05-22] MEDS: FUROSEMIDE 40 MG/4 ML VIAL IV SCH (10:00)
--- NOTE | 2019-05-22 10:45 | NUR ---
DR SUAREZ AT BED SIDE FOLLOWING UP ON PT.
[2019-05-22 14:00] VITALS: BP 148/87
[2019-05-22] MEDS: SODIUM CHLORIDE 0.9% 1,000 ML IV SCH (14:17)
[2019-05-22] MEDS: metroNIDAZOLE 500 MG TAB PO SCH ×2 (14:22→21:09)
[2019-05-22 17:00] VITALS: BP 159/94
[2019-05-22] MEDS: HYDROcodone-ACET 7.5/325MG TAB PO PRN (17:30)
--- NOTE | 2019-05-22 19:00 | NUR ---
PATIENT CONTINUE STABLE, CONTINUE MONITORING
--- NOTE | 2019-05-22 19:45 | NUR ---
Opening Shift Note Assumed care of patient, awake and alert x4. No S/S of distress, c/o of sob on room air, saturation 91% placed back on 2L NC, patient feel better with o2 on, denies pain. Instructed on POC and to call for assistance PRN, will continue to monitor for changes Q1hr and PRN.
--- NOTE | 2019-05-22 21:09 | NUR ---
Anxiety Pt given anxiety medication at this time, denies pain. Will continue to monitor. Call light within reach.
[2019-05-22 21:30] VITALS: BP 154/84
[2019-05-23 04:30] VITALS: BP 156/96
[2019-05-23] MEDS: metroNIDAZOLE 500 MG TAB PO SCH ×3 (05:27→22:17)
[2019-05-23] MEDS: ACCU-CHEK COMFORT CURVE STRIP VI SCH ×4 (05:30→22:24)
[2019-05-23] MEDS: InsuLIN REG 1unit/0.01ml Soln (100units/ml) SC SCH ×4 (05:30→22:24)
[2019-05-23] MEDS: SODIUM CHLORIDE 0.9% 1,000 ML IV SCH (05:31)
--- NOTE | 2019-05-23 05:45 | NUR ---
Rounds Patient awake and alert. No S/S of distress/SOB, denies pain at this time. Assisted patient back to bed from bedside commode, patient urinated small amount encouraged to call as needed, skin care provided, repositioned up in bed with assistance. Will continue to monitor changes q1hr and PRN.
--- NOTE | 2019-05-23 07:15 | NUR ---
Endorsed care to Diego CRUMP Addendum: 05/23/19 at 0723 by Cassie Pittman RN RN Disregard note, endorsed care to Jocelyn CRUMP
--- NOTE | 2019-05-23 07:22 | NUR ---
OPENING NOTE Assumed care of patient from NOC RNCassie. Patient awake and alert with no S/S of distress/SOB or pain. Nasal cannula in place, connected to 2L O2. Instructed on POC and to call for assist PRN, verbalized understanding. Bed in lowest, locked position with side rails up x2. Fall/contact precautions in place and call light within reach. Will continue to monitor for changes Q1hr and PRN.
[2019-05-23] MEDS: ONDANSETRON HCL 4 MG/2 ML VIAL IV PRN ×2 (08:19→15:00)
[2019-05-23] MEDS: FUROSEMIDE 40 MG/4 ML VIAL IV SCH (08:32)
[2019-05-23] MEDS: POTASSIUM CHL 10 Meq TABLET PO SCH (08:32)
[2019-05-23] MEDS: DULoxetine HCL 30 MG CAP PO SCH (08:32)
[2019-05-23] MEDS: CARVEDILOL 3.125 MG TAB PO SCH ×2 (08:33→22:16)
[2019-05-23] MEDS: FLUCONAZOLE 100 MG TAB PO SCH (08:33)
[2019-05-23] MEDS: LEVOFLOXACIN 250 MG TAB PO SCH (08:33)
[2019-05-23] MEDS: MUPIROCIN 2% OINT 15gm or 22gm EACHNOSTRI SCH (08:33)
[2019-05-23] MEDS: NYSTATIN TOPICAL POWDER 15GM TOP SCH ×2 (08:34→22:17)
[2019-05-23 09:00] VITALS: BP 173/129
[2019-05-23 13:00] VITALS: BP 150/80
[2019-05-23 16:44] LABS: Basophils # (auto) 0.1 uL; Basophils % (auto) 1.1 % (0.0-2.0); Eosinophils # (auto) 0.2 uL; Eosinophils % (auto) 3.4 % (0.0-7.0); Hematocrit 29.5 % (36.0-46.0); Hemoglobin 9.9 g/dL (12.2-16.2); Lymphocytes % (auto) 14.4 % (10.0-50.0); Mean Corpuscular Hemoglobin 29.8 pg (28.0-32.0); Mean Corpuscular Hgb Conc. 33.7 g/dL (32.0-36.0); Mean Corpuscular Volume 88.6 fL (80.0-100.0); Monocytes # (auto) 0.7 uL; Monocytes % (auto) 10.8 % (0.0-12.0); Neutrophils # (auto) 4.8 uL; Neutrophils % (auto) 70.3 % (37.0-80.0); Platelet Count (auto) 215 10^3/uL (140-450); Red Blood Cells 3.33 10^6/uL (4.0-5.20); Red Cell Distribution Width 14.8 % (11.8-14.3); White Blood Cell 6.9 10^3/uL (4.4-10.8)
[2019-05-23 16:47] LABS: BUN/Creatinine Ratio 3.6; Calcium 8.3 mg/dL (8.5-10.1)
--- NOTE | 2019-05-23 16:50 | NUR ---
FAMILY Patient's daughter and granddaughter at bedside.
[2019-05-23 17:00] VITALS: BP 153/89
--- NOTE | 2019-05-23 17:17 | NUR ---
PAIN MANAGEMENT Per patient's daughters request, left message with paint crew supervisor regarding patient's admission. Patient's daughter, Laura, states the patient missed her appt because of hospitalization and they need a call confirming admission so that a refill can be sent to pharmacy. [facility]
--- NOTE | 2019-05-23 18:00 | NUR ---
PAGED Paged Dr. Mejias regarding Potassium level, 3.0. Awaiting call back.
[2019-05-23] MEDS ORDERED: POTASSIUM CHL 20 Meq TABLET PO ONE (18:15)
--- NOTE | 2019-05-23 18:20 | NUR ---
AWARE Dr. Mejias aware. New orders received.
--- NOTE | 2019-05-23 19:13 | NUR ---
CLOSING NOTE Endorsed care of patient to NOC Fadi CRUMP.
--- NOTE | 2019-05-23 19:30 | NUR ---
Opening Shift Note Assumed care of patient, awake and alert. No S/S of distress/SOB or pain. Instructed on POC and to call for assist PRN. Family at bedside, all questions and concerns addressed. Bed in lowest locked position, call light within reach, side rails up x2, fall precautions in place. Will continue to monitor for changes Q1hr and PRN.
[2019-05-23 22:00] VITALS: BP 156/75
[2019-05-23] MEDS: ALPRAZolam 0.25 MG TAB PO PRN (22:43)
--- NOTE | 2019-05-24 02:25 | NUR ---
IV insertion IV access obtained, via clean sterile technique by inserting 22 gauge catheter at left forearm after 2 attempt(s). IV secured properly. No trauma to site. Patient tolerated well. NOTE: Old IV accidentally pulled out. Site secured with gauze and coban.
[2019-05-24] MEDS: SODIUM CHLORIDE 0.9% 1,000 ML IV SCH (04:15)
[2019-05-24 04:30] VITALS: BP 142/74
[2019-05-24] MEDS: ACCU-CHEK COMFORT CURVE STRIP VI SCH ×4 (06:30→21:44)
[2019-05-24] MEDS: metroNIDAZOLE 500 MG TAB PO SCH (06:30)
[2019-05-24] MEDS: InsuLIN REG 1unit/0.01ml Soln (100units/ml) SC SCH ×4 (06:30→21:43)
--- NOTE | 2019-05-24 07:00 | NUR ---
OPENING SHIFT NOTE ASSUMED CARE OF THE PATIENT FROM THE LAY OUT MACHINE OPERATOR RN. THE PATIENT IS A&OX4, NO SIGNS OR SYMPTOMS OF DISTRESS. EDUCATED THE PATIENT ON POC AND PATIENT VERBALIZED UNDERSTANDING THE PATIENT'S CALL LIGHT IS WITHIN REACH AND BED IS IN THE LOWEST, LOCKED POSITION. THE PATIENT'S BED ALARM IS ON. WILL ROUND HOURLY AND CONTINUE TO MONITOR.
[2019-05-24 08:00] VITALS: BP 143/70
[2019-05-24 08:16] VITALS: BP 143/70
[2019-05-24] MEDS: FUROSEMIDE 40 MG/4 ML VIAL IV SCH (10:37)
[2019-05-24] MEDS: FLUCONAZOLE 100 MG TAB PO SCH (10:38)
[2019-05-24] MEDS: DULoxetine HCL 30 MG CAP PO SCH (10:38)
[2019-05-24] MEDS: POTASSIUM CHL 10 Meq TABLET PO SCH (10:38)
[2019-05-24] MEDS: CARVEDILOL 3.125 MG TAB PO SCH ×2 (10:38→21:43)
[2019-05-24] MEDS: LEVOFLOXACIN 250 MG TAB PO SCH (10:39)
[2019-05-24] MEDS: NYSTATIN TOPICAL POWDER 15GM TOP SCH ×2 (10:39→21:44)
[2019-05-24] MEDS: ONDANSETRON HCL 4 MG/2 ML VIAL IV PRN ×2 (11:43→21:44)
[2019-05-24 13:00] VITALS: BP 138/70
[2019-05-24 13:27] LABS: BUN/Creatinine Ratio 3.4; Calcium 8.3 mg/dL (8.5-10.1); Potassium 4.2 mmol/L (3.5-5.1)
--- NOTE | 2019-05-24 15:29 | NUR ---
Nutrition Follow-up Notes Wt.: 72.2 kg as of yesterday. Pt's on oxygen via nasal cannula,denies any discomfort except for abdominal pain (04/28) when rounded this morning. 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 Pt's diabetic, takes oral DM meds, with insulin shots 3x daily, usually has good appetite, eat meals regularly, NKFA and not into any special diets mud analysis well logging captain. Pt's currently on Mechanical Soft Consistent Carb, Cardiac diet with inadequate PO intake aeb <50% ave. consumed meals (x5) in last 2.5 days d/t pt refused, per nursing. Encouraged to increase food intake through small frequent meals as tolerated. Reinforced nutrition educ. re: current therapeutic diet and she verbalized understanding. Est. Needs: 1450 kcal to 1800 kcal (20-25 kcal/kgBW), 58 gms to 72 gms pro (0.8-1.0 gms/kgBW). Will continue to monitor pertinent labs and reassess nutrient need prn Labs: Gluc 160 H, Cl 11 H, BUN 5 L, Cr 1.48 H, Ca 8.3 L Skin: Reji scale 18, mod risk, skin intact per ring maker. GI: Pt had 1 BM this morning per ring maker. PES: Altered nutrition related lab values r/t acute/chronic medical condition aeb hyperglycemia, elev. renal labs Obesity r/t food intake more than body requirement aeb 151% IBW, BMI 30.1 kg/m2 and increased body adiposity Will continue to monitor PO intake, skin status, pertinent labs and weight trend. F/u in 3 to 5 days. Rec.: 1.) Continue close supervision and feeding assistance prn during meals. 2.) If pt's PO intake remains inadequate (<75%), consider Glucerna Shakes 1 carton BID. 3.) If Albumin level continues trending down, consider Prostat 1 pkt BID. 4.) Refer pt to CDE/RD for further nutrition education and weight monitoring upon discharge. 5.) Continue current plan of care.
[2019-05-24 16:51] VITALS: BP 121/63
--- NOTE | 2019-05-24 20:00 | NUR ---
Patient and patients family insists on keeping diaper on patient regardless of nurse explaining the hospital policy of no diapers allowed. Patient daughter signed ama form regarding diaper on patient. Signed AMA form placed in chart.
[2019-05-24] MEDS: ALPRAZolam 0.25 MG TAB PO PRN (21:44)
[2019-05-24 22:00] VITALS: BP 122/78
[2019-05-25] MEDS: SODIUM CHLORIDE 0.9% 1,000 ML IV SCH (04:55)
[2019-05-25 05:04] VITALS: BP 134/73
[2019-05-25] MEDS: InsuLIN REG 1unit/0.01ml Soln (100units/ml) SC SCH ×2 (06:41→11:30)
[2019-05-25] MEDS: ACCU-CHEK COMFORT CURVE STRIP VI SCH ×2 (06:42→11:49)
--- NOTE | 2019-05-25 07:00 | NUR ---
OPENING SHIFT NOTE ASSUMED CARE OF THE PATIENT FROM THE STRIP CATCHER RN. THE PATIENT IS A&OX4, NO SIGNS OR SYMPTOMS OF DISTRESS. EDUCATED THE PATIENT ON POC AND PATIENT VERBALIZED UNDERSTANDING. THE PATIENT'S CALL LIGHT IS WITHIN REACH AND BED IS IN THE LOWEST, LOCKED POSITION. WILL ROUND HOURLY AND CONTINUE TO MONITOR.
--- NOTE | 2019-05-25 07:12 | NUR ---
Endorsed care to day shift RN. Patient in bed with no signs of distress/sob/pain. Patient had no events of distress throughout the shift.
[2019-05-25] MEDS: ONDANSETRON HCL 4 MG/2 ML VIAL IV PRN (07:37)
[2019-05-25 08:00] VITALS: BP 148/80
[2019-05-25 08:22] VITALS: BP 148/80
[2019-05-25] MEDS: DULoxetine HCL 30 MG CAP PO SCH (09:45)
[2019-05-25] MEDS: CARVEDILOL 3.125 MG TAB PO SCH (09:45)
[2019-05-25] MEDS: FLUCONAZOLE 100 MG TAB PO SCH (09:45)
[2019-05-25] MEDS: NYSTATIN TOPICAL POWDER 15GM TOP SCH (09:46)
[2019-05-25] MEDS: POTASSIUM CHL 10 Meq TABLET PO SCH (09:46)
[2019-05-25 12:24] VITALS: BP 130/77
--- NOTE | 2019-05-25 15:02 | NUR ---
I received a page from nurse Meaghan letting me know that this patient had an order to go home with home health-I let her know that patient was previously on service with [facility]-I asked her to fax the face sheet, order, and H&P to [phone]. I spoke with [facility] and they will send a nurse out tomorrow to see the patient.
--- NOTE | 2019-05-25 15:46 | NUR ---
FAXED H&P, FACE SHEET, AND HOME HEALTH ORDER TO [facility], PER PADDY'S REQUEST.
[2019-05-25 16:22] VITALS: BP 159/95
== END 2019-05-25 16:15 | disposition home health service (06) | DRG 871 ==
LOC: EAST 14:51
PROVIDERS: ADMIT Internal Medicine Cardiovascular Disease; ATTEND Internal Medicine Cardiovascular Disease
DX: A41.9 Sepsis, unspecified organism (principal); K65.9 Peritonitis, unspecified; L02.211 Cutaneous abscess of abdominal wall; I50.32 Chronic diastolic (congestive) heart failure; M80.08XA Age-related osteoporosis with current pathological fracture, vertebra(e), initial encounter for fracture; K57.90 Diverticulosis of intestine, part unspecified, without perforation or abscess without bleeding; I25.10 Atherosclerotic heart disease of native coronary artery without angina pectoris; I11.0 Hypertensive heart disease with heart failure; E11.40 Type 2 diabetes mellitus with diabetic neuropathy, unspecified; E87.6 Hypokalemia; G47.00 Insomnia, unspecified; E11.21 Type 2 diabetes mellitus with diabetic nephropathy; E11.59 Type 2 diabetes mellitus with other circulatory complications
CPT/HCPCS: 36415; 71045; 74176; 76705; 78306; 80048; 80053; 81001; 82150; 82962; 83036; 83615; 83690; 83735; 83880; 85007; 85025; 85027; 85652; 87040; 87081; 96360; 96361; 97116; 97530; G0378; G0463; J1815; J1956; J2405; J3490

== ENCOUNTER 2019-06-05 12:24 | Inpatient (IN) | payer MEDICARE, MEDICAID ==
[~2019-06-05] VITALS: Ht 152.4 cm; Wt 72.9 kg
[~2019-06-05 12:24] MED LIST changes: +FURO1TAB31 PO; -FURO40TA; -METF-370; +POTA-220 PO; -POTA20TA53 PO
[2019-06-05 13:56] LABS: INR 1.1 (0.9-1.15); Partial Thromboplastin Time 29.1 sec (23.64-32.05)
[2019-06-05 13:58] LABS: Basophils # (auto) 0.1 uL; Basophils % (auto) 0.4 % (0.0-2.0); Eosinophils # (auto) 0 uL; Eosinophils % (auto) 0.3 % (0.0-7.0); Hematocrit 30.2 % (36.0-46.0); Hemoglobin 9.9 g/dL (12.2-16.2); Lymphocytes % (auto) 6.9 % (10.0-50.0); Mean Corpuscular Hemoglobin 29.3 pg (28.0-32.0); Mean Corpuscular Hgb Conc. 32.7 g/dL (32.0-36.0); Mean Corpuscular Volume 89.5 fL (80.0-100.0); Monocytes # (auto) 0.8 uL; Monocytes % (auto) 5.5 % (0.0-12.0); Neutrophils % (auto) 86.9 % (37.0-80.0); Nucleated Red Blood Cells % 0.1 %; Platelet Count (auto) 287 10^3/uL (140-450); Red Blood Cells 3.37 10^6/uL (4.0-5.20)
[2019-06-05 14:02] LABS: Alanine Aminotransferase 8 U/L (13-56); Albumin 2.4 g/dL (3.4-5.0); Anion Gap 5 (5-15); Aspartate Aminotransferase 10 U/L (15-37); BUN/Creatinine Ratio 11.6; Blood Urea Nitrogen 36 mg/dL (7-18); Carbon Dioxide 29 mmol/L (21-32); Chloride 105 mmol/L (98-107); GFR African American 18 mL/min; GFR Non-African American 15 mL/min; Glucose 142 mg/dL (74-106); Potassium 4.4 mmol/L (3.5-5.1); Sodium 139 mmol/L (136-145)
[2019-06-05 14:06] LABS: Alkaline Phosphatase 117 U/L (45-117); Bilirubin, Total 0.3 mg/dL (0.2-1.0); Calcium 8.2 mg/dL (8.5-10.1); Total Protein 6.1 g/dL (6.4-8.2)
[2019-06-05] MEDS ORDERED: SODIUM CHLORIDE 0.9% 1,000 ML IV ONE (14:56)
[2019-06-05] MEDS ORDERED: ONDANSETRON HCL 4 MG/2 ML VIAL IV ONE (15:00)
[2019-06-05] MEDS ORDERED: MORPHINE SULF INJ 2 MG/ML SYRINGE 1ML IV ONE (15:00)
[2019-06-05] MEDS ORDERED: cefTRIAXone 1GM/50ML D5W 50 ML IV ONE ×2 (16:00→18:30)
[2019-06-05] MEDS ORDERED: metroNIDAZOLE 500MG/100ML 100 ML IV ONE (16:00)
[2019-06-05] MEDS: SODIUM CHLORIDE 0.9% 1,000 ML IV SCH (18:27)
[2019-06-05] MEDS ORDERED: NITROGLYCERIN 0.4 MG SL TAB SL PRN (18:30)
[2019-06-05] MEDS ORDERED: DEXTROSE (50%) 50ML SYRG IV PRN (18:30)
[2019-06-05] MEDS ORDERED: ALBUTEROL SULF 2.5 MG/0.5ML(0.5%) NEB SOLN NEB PRN (18:30)
[2019-06-05] MEDS ORDERED: MORPHINE SULF INJ 2 MG/ML SYRINGE 1ML IV PRN (18:30)
[2019-06-05 19:49] VITALS: BP 121/53
--- NOTE | 2019-06-05 19:49 | NUR ---
OPENING SHIFT NOTE Patient in bed alert and oriented x 4, verbally coherent, able to make needs known. Patient ENTERPRISE on both ears. Patient's respiration even and unlabored, complained of pain to right lower back, refused Ultram, stated, this medication makes her more sick. Provided patient with warm compress, stated alleviates pain to right lower back. Family at bedside. Plan of care discussed, patient verbalized understanding. Will continue to monitor.
--- NOTE | 2019-06-05 19:49 | NUR ---
Telemetry admit from ER TIM CLARKE admitted to Telemetry unit after hand off tool received. Patient oriented to primary RN, unit, room, bed, and unit policies regarding patient care and visiting hours. Patient now on continuous telemetry monitoring, tele box # 29 and telemetry reading on arrival to unit is Sinus Rhythm at 100. Patient weighed by bedscale and encouraged to call if they need something. All questions and concerns addressed, patient verbalized understanding.
--- NOTE | 2019-06-05 19:50 | NUR ---
Patient authorizing Laura on patient's care. Pt stated, "do not get instruction from Naima only from Laura"
[2019-06-05] MEDS: ACCU-CHEK COMFORT CURVE STRIP VI SCH ×2 (21:06→23:47)
--- NOTE | 2019-06-05 21:06 | NUR ---
BLOOD SUGAR LEVEL 241. NO S/S OF HYPERGLYCEMIA. WILL CONTINUE TO MONITOR.
--- NOTE | 2019-06-05 21:17 | NUR ---
Respiratory note: PT ASSESSED FOR PRN MED NEB TX. HR 85, RR 18, SPO2 98% ON 2L NC. NO SIGNS OF ANY RESPIRATORU DISTRESS NOTED. ADVISED PT TO CALL IF TX IS NEEDED.
[2019-06-05] MEDS: metroNIDAZOLE 500MG/100ML 100 ML IV SCH (22:19)
--- NOTE | 2019-06-05 23:15 | NUR ---
MRSA SWAB TAKEN AND SENT TO LAB VIA BULLET.
--- NOTE | 2019-06-06 | NUR ---
BLOOD SUGR LEVEL AT Addendum: 06/06/19 at 0054 by Micki Wood RN 194 MG/DL. NO S/S OF HYPERGLYCEMIA
[2019-06-06] MEDS: HYDROcodone-ACET 7.5/325MG TAB PO PRN ×3 (01:20→20:50)
--- NOTE | 2019-06-06 01:30 | NUR ---
UA sample obtained and sent to lab via bullet.
[2019-06-06 01:31] VITALS: BP 121/53
[2019-06-06 03:12] LABS: Urine Bacteria FEW /hpf (None Seen); Urine Blood Negative /uL (Negative); Urine Specific Gravity 1.011 (1.001-1.035); Urine WBC 33 /hpf (0 - 5)
[2019-06-06] MEDS: SODIUM CHLORIDE 0.9% 1,000 ML IV SCH ×2 (04:27→14:55)
[2019-06-06] MEDS: ACCU-CHEK COMFORT CURVE STRIP VI SCH ×5 (04:40→20:46)
[2019-06-06] MEDS: ACETAMINOPHEN 500 MG TAB PO PRN (04:52)
[2019-06-06 05:00] VITALS: BP 155/81
--- NOTE | 2019-06-06 05:19 | NUR ---
Blood sugar level at 75 mg/dl.
[2019-06-06] MEDS ORDERED: HYDR-4072 PO (05:37)
[2019-06-06] MEDS ORDERED: ALPR0.254 PO (05:37)
[2019-06-06] MEDS ORDERED: OMEP-263 PO (05:37)
[2019-06-06] MEDS ORDERED: SIMV-8 PO (05:38)
[2019-06-06] MEDS: metroNIDAZOLE 500MG/100ML 100 ML IV SCH ×3 (06:16→20:46)
[2019-06-06 06:19] LABS: Basophils # (auto) 0 uL; Basophils % (auto) 0.4 % (0.0-2.0); Eosinophils # (auto) 0.2 uL; Eosinophils % (auto) 2.2 % (0.0-7.0); Hematocrit 30.6 % (36.0-46.0); Hemoglobin 10.2 g/dL (12.2-16.2); Lymphocytes # (auto) 1.1 uL; Lymphocytes % (auto) 10.9 % (10.0-50.0); Mean Corpuscular Hemoglobin 29.8 pg (28.0-32.0); Mean Corpuscular Hgb Conc. 33.4 g/dL (32.0-36.0); Mean Corpuscular Volume 89.2 fL (80.0-100.0); Monocytes # (auto) 0.8 uL; Monocytes % (auto) 7.9 % (0.0-12.0); Neutrophils # (auto) 8.1 uL; Neutrophils % (auto) 78.6 % (37.0-80.0); Platelet Count (auto) 316 10^3/uL (140-450); Red Blood Cells 3.43 10^6/uL (4.0-5.20); Red Cell Distribution Width 14.7 % (11.8-14.3); White Blood Cell 10.2 10^3/uL (4.4-10.8)
[2019-06-06 06:38] LABS: Calcium 7.8 mg/dL (8.5-10.1)
[2019-06-06 06:41] LABS: Albumin 2.5 g/dL (3.4-5.0); BUN/Creatinine Ratio 12.3
[2019-06-06 06:45] LABS: Bilirubin, Total 0.3 mg/dL (0.2-1.0); Total Protein 6.1 g/dL (6.4-8.2)
--- NOTE | 2019-06-06 07:30 | NUR ---
AWAKE ALERT ORIENTED TIMES 3 STATES PAIN IN RIGHT FLANK AREA /. HOT PACK PLACED FOR ON RIGHT FLANK FOR PAIN. BLOOD SUGAR 88. BREAKFAST TRAY SERVED.
--- NOTE | 2019-06-06 08:00 | NUR ---
DR REED AT BEDSIDE FOR NEPHROLOGY CONSULT.
[2019-06-06 09:00] VITALS: BP 136/79
[2019-06-06] MEDS: cefTRIAXone 1GM/50ML D5W 50 ML IV SCH (09:00)
--- NOTE | 2019-06-06 09:52 | NUR ---
ASSISTED PATIENT TO BEDSIDE COMMODE DAUGHTER BRANDON AT BEDSIDE.
[2019-06-06] MEDS: ONDANSETRON HCL 4 MG/2 ML VIAL IV PRN (11:02)
--- NOTE | 2019-06-06 11:20 | NUR ---
Respiratory note: PT ASSESSED FOR PRN MED NEB TX. HR 90, RR 16, SPO2 98% ON 2L NC. NO RESPIRATORY DISTRESS NOTED. PT AWARE TO HAVE RT PAGED IF THEY BECOME SOB.
[2019-06-06] MEDS: PANTOPRAZOLE 40 MG TAB PO SCH (12:36)
--- NOTE | 2019-06-06 12:39 | NUR ---
BLOOD SUGAR 58 NO SIGNS OF HYPOGLYCEMIA. JUICE AND JELLO GIVEN.
[2019-06-06 13:00] VITALS: BP 135/62
--- NOTE | 2019-06-06 13:42 | NUR ---
assessment Per consult advanced directive info and DME. I have provided patient and daughter Laura with advanced directive. Laura was asking about a wheelchair. Patient does not qualify for a wheelchair per Medicare guidelines. Patient will need a resumption order for [facility] on discharge. Addendum: 06/06/19 at 1344 by Brandy Monte Amended: Links added.
--- NOTE | 2019-06-06 15:29 | NUR ---
BLOOD SUGAR 170
--- NOTE | 2019-06-06 15:42 | NUR ---
DR Yariel MCCARTY AT BEDSIDE DISCUSSED PLAN OF CARE WITH PATIENT AND FAMILY. DAUGHTER BRANDON VERBALIZED UNDERSTANDING.
[2019-06-06 17:00] VITALS: BP 154/90
--- NOTE | 2019-06-06 20:00 | NUR ---
Opening Shift Note: A&Ox4, with periods of slight confusion. 2LO2 via NC; wears at home; abdominal pain 10/10; and ambulates moderate assist to bedside commode. Bed locked in lowest position, side rails up x2, call light within reach, and bed locked in lowest position. IV 20 g in left forearm running NS at 100 inserted on 06/05/19. Skin: generalized bruising present. Patient's family wants depends on patient for occasional urinary incontinence. Education provided on facility policy of no diapers but family still wanted to use home supply. POC discussed and questions answered. Will continue to round prn and reposition prn.
[2019-06-06] MEDS: CARVEDILOL 3.125 MG TAB PO SCH (20:47)
[2019-06-06 21:40] VITALS: BP 127/72
--- NOTE | 2019-06-07 00:13 | NUR ---
New IV: IV 20 g in left forearm infiltration. IV removed. New IV 22 g in right forearm inserted x1 attempt. Patient tolerated well.
[2019-06-07] MEDS: ACCU-CHEK COMFORT CURVE STRIP VI SCH ×7 (00:15→23:48)
[2019-06-07] MEDS: SODIUM CHLORIDE 0.9% 1,000 ML IV SCH ×4 (00:16→23:48)
[2019-06-07] MEDS: ALPRAZolam 0.25 MG TAB PO PRN ×2 (00:37→19:20)
[2019-06-07] MEDS ORDERED: MORPHINE SULF INJ 2 MG/ML SYRINGE 1ML IV ONE (02:15)
[2019-06-07 04:40] VITALS: BP 138/77
[2019-06-07] MEDS: HYDROcodone-ACET 7.5/325MG TAB PO PRN ×2 (05:19→15:03)
[2019-06-07] MEDS: metroNIDAZOLE 500MG/100ML 100 ML IV SCH ×3 (05:19→21:57)
[2019-06-07 06:15] LABS: Basophils # (auto) 0 uL; Basophils % (auto) 0.6 % (0.0-2.0); Eosinophils # (auto) 0.5 uL; Eosinophils % (auto) 6.6 % (0.0-7.0); Hematocrit 27.7 % (36.0-46.0); Hemoglobin 9.3 g/dL (12.2-16.2); Lymphocytes # (auto) 1.2 uL; Lymphocytes % (auto) 17.1 % (10.0-50.0); Mean Corpuscular Hemoglobin 29.8 pg (28.0-32.0); Mean Corpuscular Hgb Conc. 33.7 g/dL (32.0-36.0); Mean Corpuscular Volume 88.4 fL (80.0-100.0); Monocytes # (auto) 0.7 uL; Monocytes % (auto) 9.6 % (0.0-12.0); Neutrophils # (auto) 4.6 uL; Neutrophils % (auto) 66.1 % (37.0-80.0); Platelet Count (auto) 303 10^3/uL (140-450); Red Blood Cells 3.13 10^6/uL (4.0-5.20); Red Cell Distribution Width 14.4 % (11.8-14.3); White Blood Cell 6.9 10^3/uL (4.4-10.8)
[2019-06-07 06:23] LABS: Chloride 109 mmol/L (98-107); Potassium 3.6 mmol/L (3.5-5.1); Sodium 142 mmol/L (136-145)
--- NOTE | 2019-06-07 06:23 | NUR ---
Respiratory note: PT RESTING COMFORTABLY. NO RESPIRATORY DISTRESS NOTED. SPO2 100% ON 2L NC, HR 79, RR 16, BS CLEAR T/O. PRN MED NEB TX NOT INDICATED AT THIS TIME. PT INFORMED TO PUSH CALL BUTTON IF INCREASED WOB, SOB, OR WHEEZING OCCURS.
[2019-06-07 06:31] LABS: Alanine Aminotransferase < 6 U/L (13-56); Alkaline Phosphatase 99 U/L (45-117); Anion Gap 8 (5-15); Aspartate Aminotransferase 9 U/L (15-37); BUN/Creatinine Ratio 10.8; Bilirubin, Total 0.3 mg/dL (0.2-1.0); Blood Urea Nitrogen 23 mg/dL (7-18); Carbon Dioxide 25 mmol/L (21-32); GFR African American 28 mL/min; GFR Non-African American 23 mL/min; Glucose 88 mg/dL (74-106); Total Protein 5.4 g/dL (6.4-8.2)
--- NOTE | 2019-06-07 08:00 | NUR ---
Dr. Love at bedside.
[2019-06-07 08:42] VITALS: BP 145/89
[2019-06-07] MEDS: cefTRIAXone 1GM/50ML D5W 50 ML IV SCH (08:53)
[2019-06-07] MEDS: traMADol HCL 50 MG TAB PO PRN ×2 (08:53→22:00)
[2019-06-07] MEDS: PANTOPRAZOLE 40 MG TAB PO SCH (09:31)
[2019-06-07] MEDS: CARVEDILOL 3.125 MG TAB PO SCH ×2 (09:36→21:58)
[2019-06-07 13:00] VITALS: BP 130/77
[2019-06-07 17:00] VITALS: BP 157/78
[2019-06-07 20:00] VITALS: BP 151/81
--- NOTE | 2019-06-07 22:00 | NUR ---
Pain Management Pt medicated for abdominal pain, not due for requested norco at this time, medicated as ordered. Will continue to monitor for pain relief. Call light within reach, bed alarm on
[2019-06-07 22:10] VITALS: BP 151/81
--- NOTE | 2019-06-07 22:40 | NUR ---
Respiratory note: PT SEEN AND ASSESSED FOR PRN MED NEB TX AT 2240. TX NOT INDICATED AT THIS TIME. PT DENIES ANY RESPIRATORY DISTRESS BUT STATES THAT SHE IS IN PAIN. BREATH SOUNDS WERE CLEAR AND DIMINISHED BILATERALLY. HR 89 RR 23 POX 99% ON 2L NASAL CANNULA. PT AWARE TO CALL FOR RT IF ANY DISTRESS OCCURS.
--- NOTE | 2019-06-08 00:12 | NUR ---
MD Called/paged Hospitalist called re:sleeping pill request, order received. Continue care.
[2019-06-08] MEDS: TEMAZEPAM 15 MG CAP PO PRN ×2 (01:42→21:30)
[2019-06-08] MEDS: ACCU-CHEK COMFORT CURVE STRIP VI SCH ×6 (04:00→23:35)
[2019-06-08 04:49] LABS: Hematocrit 30.5 % (36.0-46.0); Hemoglobin 9.7 g/dL (12.2-16.2); Mean Corpuscular Hemoglobin 30.3 pg (28.0-32.0); Mean Corpuscular Hgb Conc. 31.6 g/dL (32.0-36.0); Mean Corpuscular Volume 95.7 fL (80.0-100.0); Platelet Count (auto) 337 10^3/uL (140-450); Red Blood Cells 3.19 10^6/uL (4.0-5.20); Red Cell Distribution Width 14.9 % (11.8-14.3); White Blood Cell 7.4 10^3/uL (4.4-10.8)
[2019-06-08 04:50] LABS: Albumin 1.9 g/dL (3.4-5.0); Anion Gap 7 (5-15); Blood Urea Nitrogen 15 mg/dL (7-18); Calcium 7.5 mg/dL (8.5-10.1); Carbon Dioxide 21 mmol/L (21-32); Chloride 112 mmol/L (98-107); Glucose 82 mg/dL (74-106); Potassium 3.4 mmol/L (3.5-5.1); Sodium 140 mmol/L (136-145)
[2019-06-08 04:51] LABS: Basophils % (manual) 0 (0.0-2.0); Blast Cells 0; Myelocytes % 0; Promyelocytes % 0; Reactive Lymphocytes 0
[2019-06-08 04:54] LABS: Alanine Aminotransferase < 6 U/L (13-56); Alkaline Phosphatase 100 U/L (45-117); Aspartate Aminotransferase 13 U/L (15-37); BUN/Creatinine Ratio 8.4; Bilirubin, Total 0.2 mg/dL (0.2-1.0); GFR African American 35 mL/min; GFR Non-African American 29 mL/min; Total Protein 5.3 g/dL (6.4-8.2)
[2019-06-08] MEDS: HYDROcodone-ACET 7.5/325MG TAB PO PRN ×3 (05:02→23:03)
[2019-06-08] MEDS: metroNIDAZOLE 500MG/100ML 100 ML IV SCH ×3 (05:02→21:31)
--- NOTE | 2019-06-08 05:02 | NUR ---
Pain Management Pt medicated for abdominal pain 08/28 patient moaning. Pt is incontinent of urine, skin care provided, z guard applied to perianal area and thighs, skin intact. Pt repositioned up in bed for comfort, call light within reach, bed alarm on
[2019-06-08] MEDS: SODIUM CHLORIDE 0.9% 1,000 ML IV SCH (05:28)
[2019-06-08 05:52] VITALS: BP 159/75
--- NOTE | 2019-06-08 06:20 | NUR ---
Respiratory note: PT AWAKE, AND ALERT. RN AT BED SIDE. SPO2 99% ON 2L NC , HR 76, RR 16, BS CLEAR T/O. PRN TX NOT INDICATED AT THIS TIME. INFORMED PT TO PUSH CALL BUTTON IF INCREASED WOB, SOB, OR WHEEZING OCCURS.
--- NOTE | 2019-06-08 07:25 | NUR ---
Endorsed care to Preeti CRUMP
[2019-06-08 08:00] VITALS: BP 168/66
--- NOTE | 2019-06-08 08:44 | NUR ---
50% DEXTROSE INJECTION ADMINISTERED DUE TO PATIENT UNWILLING TO SWALLOW JUICE. PATIENT ATTEMPTED TO DRINK BOTH APPLE JUICE AND ORANGE JUICE, BUT DUE TO RIGHT ABDOMINAL PAIN IS UNWILLING TO CONTINUE. BLOOD GLUCOSE 48 WITH ACCU CHECK GLUCOMETER. PATIENT IS ALERT AND ORIENTED X3 AND IS MOANING. PATIENT POINTS TO RIGHT SIDE AND SAYS "PAIN", STATES IT IS 10/10. NO PAIN MEDICATION DUE AT THIS TIME. WILL CONTACT M.D. TO INFORM M.D. OF PATIENTS PAIN AND BLOOD GLUCOSE LEVEL. THIS R.N. AT BEDSIDE WITH PATIENT. WILL CONTINUE TO RE ASSESS BLOOD GLUCOSE.
[2019-06-08] MEDS: cefTRIAXone 1GM/50ML D5W 50 ML IV SCH (08:52)
[2019-06-08 09:21] LABS: Band Neutrophils % (manual) 1; Eosinophils % (manual) 8 (0-7); Lymphocytes % (manual) 16 (10.0-50.0); Metamyelocytes % 1; Monocytes % (manual) 4 (0-12)
--- NOTE | 2019-06-08 09:30 | NUR ---
PATIENT REASSESSMENT. BLOOD GLUCOSE 164. PATIENT NO LONGER MOANING. PATIENT STATES, "PAIN IS BETTER." NO S/S OF DISTRESS OR SOB. DR. Hang MCCARTY AT BEDSIDE WITH THIS R.N. M.D. UPDATED ON PATIENT STATUS AND LAB VALUES NEW ORDERS GIVEN
--- NOTE | 2019-06-08 09:35 | NUR ---
NEW ORDERS FOR I.V. FLUID D10% NS @100 ML GIVEN M.D. INFORMED PATIENT CURRENT BLOOD SUGAR IS 164 DR. Hang MCCARTY STATED "START THE FLUIDS AFTER THE 12 PM ACCU CHECK IF PATIENT BLOOD SUGAR IS 60 OR LESS." UNTIL 12 PM ACCU CHECK, PATIENT IS TO REMAIN ON N.S. AT 150 ML/HR. FLUIDS ONLY TO BE SWITCHED IF BLOOD GLUCOSE IS 60 OR LESS M.D. UPDATED ON PATIENT POTASSIUM LAB VALUE NEW ORDERS PLACED
[2019-06-08] MEDS: CARVEDILOL 3.125 MG TAB PO SCH ×2 (09:40→21:31)
[2019-06-08] MEDS: PANTOPRAZOLE 40 MG TAB PO SCH (09:40)
[2019-06-08] MEDS ORDERED: POTASSIUM CHL 20 Meq TABLET PO ONE (09:45)
[2019-06-08] MEDS: traMADol HCL 50 MG TAB PO PRN (11:56)
--- NOTE | 2019-06-08 12:01 | NUR ---
BLOOD GLUCOSE 149. D10%NS I.V. FLUID NOT NEEDED AT THIS TIME.
[2019-06-08 12:30] VITALS: BP 158/87
--- NOTE | 2019-06-08 15:13 | NUR ---
NUTRITION ASSESSMENT NOTES Please refer to link notes of nutrition screen form filed under the intervention section of the plan of care for further details. Est. Needs: 1200 kcal to 1650 kcal (15-20 kcal/kgBW), 45 gms to 59 gms pro (1.0-1.3 gms/kgBW d/t severe hypoalbuminemia). Will continue to monitor pertinent labs and reassess nutrient need prn Thank you. Addendum: 06/08/19 at [address] Amended: Links added.
--- NOTE | 2019-06-08 16:10 | NUR ---
BLOOD GLUCOSE 112, NO D10%NS NEEDED AT THIS TIME.
[2019-06-08] MEDS: ONDANSETRON HCL 4 MG/2 ML VIAL IV PRN (16:38)
--- NOTE | 2019-06-08 16:39 | NUR ---
PATIENT NAUSEATED. NO EMESIS REPORTED OR OBSERVED. ZOFRAN ADMINISTERED PER EMAR/ M.D. ORDERS
[2019-06-08 16:52] VITALS: BP 125/67
--- NOTE | 2019-06-08 17:39 | NUR ---
URINE COLLECTED AND SENT TO LAB FOR URINE CX
[2019-06-08] MEDS: ALPRAZolam 0.25 MG TAB PO PRN (18:13)
--- NOTE | 2019-06-08 20:01 | NUR ---
Respiratory note: PRN MED NEB TX NOT INDICATED AT THIS TIME. PT ON 2 L/M NC, NO SOB OR ANY OTHER ACUTE RESPIRATORY DISTRESS NOTICED. WILL CONTINUE TO MONITOR PT.
[2019-06-08] MEDS: ACETAMINOPHEN 500 MG TAB PO PRN (21:32)
[2019-06-08 22:00] VITALS: BP 153/77
[2019-06-09] MEDS: ACCU-CHEK COMFORT CURVE STRIP VI SCH ×2 (03:57→08:58)
[2019-06-09] MEDS: ONDANSETRON HCL 4 MG/2 ML VIAL IV PRN ×2 (04:04→09:13)
[2019-06-09] MEDS: traMADol HCL 50 MG TAB PO PRN (04:08)
[2019-06-09 04:44] LABS: Hemoglobin 9.7 g/dL (12.2-16.2); Mean Corpuscular Hemoglobin 29.1 pg (28.0-32.0); Mean Corpuscular Hgb Conc. 32.5 g/dL (32.0-36.0); Mean Corpuscular Volume 89.6 fL (80.0-100.0); Platelet Count (auto) 381 10^3/uL (140-450); Red Blood Cells 3.35 10^6/uL (4.0-5.20); Red Cell Distribution Width 14.8 % (11.8-14.3); White Blood Cell 7.7 10^3/uL (4.4-10.8)
[2019-06-09 04:56] LABS: Basophils % (manual) 0 (0.0-2.0); Blast Cells 0; Metamyelocytes % 0; Myelocytes % 0; Promyelocytes % 0; Reactive Lymphocytes 0
[2019-06-09 05:03] LABS: Albumin 2.2 g/dL (3.4-5.0); Anion Gap 6 (5-15); Blood Urea Nitrogen 10 mg/dL (7-18); Calcium 7.7 mg/dL (8.5-10.1); Carbon Dioxide 23 mmol/L (21-32); Chloride 113 mmol/L (98-107); Glucose 81 mg/dL (74-106); Potassium 3.4 mmol/L (3.5-5.1); Sodium 142 mmol/L (136-145)
[2019-06-09 05:06] LABS: Alanine Aminotransferase < 6 U/L (13-56); Alkaline Phosphatase 105 U/L (45-117); Aspartate Aminotransferase 11 U/L (15-37); Bilirubin, Total 0.2 mg/dL (0.2-1.0); GFR African American 37 mL/min; GFR Non-African American 31 mL/min; Total Protein 5.6 g/dL (6.4-8.2)
[2019-06-09] MEDS: metroNIDAZOLE 500MG/100ML 100 ML IV SCH (05:53)
[2019-06-09 05:57] VITALS: BP 154/78
[2019-06-09 06:36] LABS: Band Neutrophils % (manual) 1; Eosinophils % (manual) 3 (0-7); Lymphocytes % (manual) 15 (10.0-50.0); Monocytes % (manual) 4 (0-12)
--- NOTE | 2019-06-09 06:50 | NUR ---
Respiratory note: PT IS RESTING COMFORTABLY. NO RESPIRATORY DISTRESS NOTED. SPO2 94%, HR 81, RR 16, BS CLEAR T/O. PRN MEDNEB TX NOT INDICATED AT THIS TIME. PT INFORMED TO PUSH CALL BUTTON IF INCREASED WOB, SOB, OR WHEEZING OCCURS.
--- NOTE | 2019-06-09 08:25 | NUR ---
PT SEEN BY DR. MCCARTY PER DR. MCCARTY PT CAN GO HOME.
--- NOTE | 2019-06-09 08:42 | NUR ---
BLOOD SUGAR BLOOD SUGAR WAS 57MG/DL, PT WAS GIVEN ORANGE JUICE, RECHECKED 74MG/DL, DR. MCCARTY MADE AWARE, HE SAID TO EDUCATE THE FAMILY TO FEED THE PT AT FREQUENT INTERVALS AND CHECK THE BLOOD SUGAR.
[2019-06-09] MEDS: cefTRIAXone 1GM/50ML D5W 50 ML IV SCH (08:57)
[2019-06-09 09:00] VITALS: BP 145/79
[2019-06-09 09:10] VITALS: BP 157/78
[2019-06-09] MEDS: PANTOPRAZOLE 40 MG TAB PO SCH (09:12)
[2019-06-09] MEDS: HYDROcodone-ACET 7.5/325MG TAB PO PRN (09:13)
[2019-06-09] MEDS: CARVEDILOL 3.125 MG TAB PO SCH (09:15)
[2019-06-09 10:24] VITALS: BP 145/79
--- NOTE | 2019-06-09 10:30 | NUR ---
PT ASSISTED TO THE COMMODE, PT HAD BM, SOFT IN SMALL AMOUNT.
[2019-06-09 12:30] VITALS: BP 157/87
--- NOTE | 2019-06-09 12:30 | NUR ---
PT AND FAMILY EDUCATED TO CHECK THE BLOOD SUGAR AND TO GIVE PT FOOD AT FREQUENT INTERVALS DEPENDING ON THE BLOOD SUGAR LEVEL, PT AND DAUGHTER BRANDON VERBALIZED UNDERSTANDING.
--- NOTE | 2019-06-09 12:31 | NUR ---
SPOKE WITH KAREN AGUILAR REGARDING WHEELCHAIR, DAUGHTER BRANDON IS TAKING THE PT HOME, BRANDON SAID WHEELCHAIR CAN BE DELIVERED IN THE PT'S HOUSE IF SHE QUALIFIES. PER KAREN, BRANDON NEEDS TO SIGN AMA LEAVING THE HOSPITAL WITHOUT THE WHEELCHAIR. BRANDON IS WILLING TO SIGN AND SHE UNDERSTAND THE PROCESS.
--- NOTE | 2019-06-09 12:45 | NUR ---
Discharge instructions given as ordered. Encourage to follow up with DR. SUAREZ ON JUNE 20 AT 11:00AM as instructed. All questions and concerns addressed. Patient verbalized understanding. Medication reconciliation form completed and copy given to patient. IV removed with catheter intact, pressure dressing applied. Telemetry unit returned to ICU. Patient taken to vehicle via wheelchair with all personal belongings, accompanied by staff and family member. No distress noted at time of departure.
--- NOTE | 2019-06-09 16:33 | NUR ---
re-assessment Ss consult daughter requesting wheel chair, discharged today. I informed Laura I would send to [facility] and see if patient now qualifies. Faxed to [facility] ph:[phone] fx: [phone] Per Neha Munroe they will pocess the order and see if patient qualifies. [facility] will need to order wheelchair if patient qualifies and will take 5-10 days to come in then will be delivered to home. Laura signed AMA for wheelchair to be delivered today. Addendum: 06/09/19 at 1635 by Brandy RAY Amended: Links added.
== END 2019-06-09 12:36 | disposition home or self-care (01) | DRG 871 ==
LOC: EDBD 12:24 → ER 12:30 → TELE 12:31 → TELE-CENTR 19:52
PROVIDERS: ADMIT Internal Medicine; ATTEND Family Medicine
DX: A41.9 Sepsis, unspecified organism (principal); N17.0 Acute kidney failure with tubular necrosis; G93.40 Encephalopathy, unspecified; K57.32 Diverticulitis of large intestine without perforation or abscess without bleeding; I13.0 Hypertensive heart and chronic kidney disease with heart failure and stage 1 through stage 4 chronic kidney disease, or unspecified chronic kidney disease; N39.0 Urinary tract infection, site not specified; N18.4 Chronic kidney disease, stage 4 (severe); E11.649 Type 2 diabetes mellitus with hypoglycemia without coma; E86.0 Dehydration; M85.88 Other specified disorders of bone density and structure, other site; E78.5 Hyperlipidemia, unspecified; K76.0 Fatty (change of) liver, not elsewhere classified; E11.22 Type 2 diabetes mellitus with diabetic chronic kidney disease; I50.9 Heart failure, unspecified; E11.40 Type 2 diabetes mellitus with diabetic neuropathy, unspecified; E11.21 Type 2 diabetes mellitus with diabetic nephropathy; D63.8 Anemia in other chronic diseases classified elsewhere; E66.01 Morbid (severe) obesity due to excess calories; K21.9 Gastro-esophageal reflux disease without esophagitis; J44.9 Chronic obstructive pulmonary disease, unspecified; F32.9 Major depressive disorder, single episode, unspecified; Z90.710 Acquired absence of both cervix and uterus; Z86.73 Personal history of transient ischemic attack (TIA), and cerebral infarction without residual deficits; Z79.4 Long term (current) use of insulin; I25.2 Old myocardial infarction; Z68.31 Body mass index [BMI] 31.0-31.9, adult; Z83.3 Family history of diabetes mellitus; Z82.49 Family history of ischemic heart disease and other diseases of the circulatory system; Z79.899 Other long term (current) drug therapy
CPT/HCPCS: 36415; 70450; 74176; 80053; 81001; 82962; 83036; 83605; 83880; 84484; 85007; 85025; 85027; 85610; 85730; 87040; 87081; 87086; 93005; 96365; 96367; 96375; G0378; J0696; J2405; J3490